=== PATIENT | male | born 1985 | race Caucasian/White ===

== ENCOUNTER 2020-05-10 07:22 | Outpatient (REF) | payer BC, SELFPAY | END 2020-05-10 07:23 | disposition home or self-care (01) | LOC: HO.LAB 07:22 | PROVIDERS: PCP Internal Medicine; Visit Provider Internal Medicine | DX: Z20.828 Contact with and (suspected) exposure to other viral communicable diseases (principal) | CPT/HCPCS: C9803; U0003 ==

== ENCOUNTER 2020-06-14 10:09 | Emergency (ER) | payer OTHER, BC, SELFPAY ==
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
[2020-06-14 10:25] VITALS: BP 163/93; PULSE 100; RESP 18; TEMP 36.9; O2SAT 95; BMI 30.1
== END 2020-06-14 12:50 | disposition home or self-care (01) ==
PROVIDERS: Emergency Provider Emergency Medicine
DX: S19.9XXA Unspecified injury of neck, initial encounter (principal); M54.2 Cervicalgia; V43.52XA Car driver injured in collision with other type car in traffic accident, initial encounter; Y93.9 Activity, unspecified; Y99.9 Unspecified external cause status; Y92.410 Unspecified street and highway as the place of occurrence of the external cause; Z79.899 Other long term (current) drug therapy
CPT/HCPCS: 72125; 99283; 99284

== ENCOUNTER 2020-07-24 15:12 | Outpatient (REF) | payer BC, SELFPAY ==
--- NOTE | ~2020-07-24 | CT_ITS ---
EXAMINATION: CT SOFT TISSUE NECK WITH CONTRAST CLINICAL INFORMATION: Follow-up cervical spine CT scan. COMPARISON: CT scan of the cervical spine to 10/26/2020. TECHNIQUE: Following the intravenous administration of 60 mL of Omnipaque 350 intravenous contrast, helical imaging was performed in the axial plane with generation of coronal and sagittal reformatted images. This CT examination was performed using dose optimization techniques as appropriate, variously including the following: *Automated exposure control *Adjustment of mA and/or kV according to patient size (this includes techniques or standardized protocols for targeted exams where dose is matched to indication/reason for exam; i.e. extremities or head) *Use of iterative reconstruction technique DLP: 467 mGy-cm FINDINGS: There is asymmetric adduction of the right arytenoid cartilage with corresponding enlargement of the right laryngeal ventricle and piriform recess consistent with paralysis of the right vocal cord. No abnormal soft tissue mass or enhancement along the expected course of the vagus or recurrent laryngeal nerves. There is nonspecific prominence of the palatine tonsillar tissue. Parapharyngeal and retromaxillary fat is preserved. Marine Steam[employer] spaces are symmetric. The parotid and submandibular glands are normal. There chronic changes related to the open repair of a right mandibular fracture. A few small foci of mineralization are visualized within the sublingual space on the right side near the insertion of the mylohyoid muscle, possibly secondary to surgery or old trauma. The tongue base and epiglottis are normal. Subglottic airway is widely patent. The thyroid gland is normal and the remainder of the visualized visceral soft tissues are normal. There are a few somewhat prominent albeit nonspecific cervical lymph nodes, none of which demonstrate worrisome enhancement characteristics to suggest capsular invasion or central necrosis. Lung apices are clear. The aortic arch apex is normal. Cervical carotid and vertebral arteries are grossly patent. Internal jugular veins fill symmetrically. There is no acute osseous finding. Specifically no worrisome lytic or blastic osseous lesion. Skull base is intact. No mastoid middle ear effusion. No active paranasal sinus disease. Limited visualization of the posterior fossa reveals no abnormal finding. CT/CT soft tissue neck w con IMPRESSION: There is nonspecific prominence of the palatine tonsillar tissue. Otherwise no abnormal enhancement. A few scattered nonspecific cervical lymph nodes are visualized within the vjuty-vo-vama of this examination, none of which demonstrate worrisome enhancement characteristics to suggest capsular invasion or central necrosis. Incidentally there are imaging characteristics consistent with paralysis of the right vocal cord. Otherwise no abnormal soft tissue mass or enhancement along the expected course of the vagus or recurrent laryngeal nerves.
== END 2020-07-24 15:13 | disposition home or self-care (01) ==
LOC: HO.CT 15:12
PROVIDERS: Visit Provider Internal Medicine
DX: J39.2 Other diseases of pharynx (principal)
CPT/HCPCS: 70491; Q9967

== ENCOUNTER 2021-03-02 11:54 | Outpatient (REF) | payer BC, SELFPAY ==
--- NOTE | ~2021-03-02 | US_ITS ---
EXAMINATION: US ABDOMEN LIMITED CLINICAL INFORMATION: Right upper quadrant pain.. COMPARISON: CT abdomen and pelvis noncontrast 01/16/2014. TECHNIQUE: Real-time imaging of the right upper quadrant abdominal viscera. FINDINGS: PANCREAS: The visualized pancreas is normal in size and echogenicity. There is no visible retroperitoneal effusion or pancreatic ductal distention. LIVER: The liver is normal in size and smooth in contour. There is increased hepatic parenchymal echogenicity consistent with hepatic steatosis. There is no focal hepatic parenchymal lesion. No intrahepatic biliary ductal dilatation. GALLBLADDER: Normal. The gallbladder is physiologically distended without evidence of stones, sludge, polyps, wall thickening or pericholecystic fluid. COMMON BILE DUCT: Normal in caliber measuring 0.3 cm in diameter. RIGHT KIDNEY: Normal. No hydronephrosis. No renal calculi or focal parenchymal lesions. The kidney measures 10.2 cm in maximum dimension. FREE FLUID: None. US/US abdomen limited IMPRESSION: 1. No cholelithiasis or ductal dilatation. 2. Hepatic steatosis.
[2021-03-02 13:49] LABS: Baso%MD 0.8 %; Eos%MD 1.6 %; Hematocrit 41.8 % (42-52); Hemoglobin 13.6 g/dl (14.0-18.0); IG%MD 0.8 %; Mean Corpuscular HGB Conc 32.5 g/dl (31.0-36.0); Mean Corpuscular Hemoglobin 28.5 pg (27.0-33.0); Mean Corpuscular Volume 87.6 fL (80-98); Mean Platelet Volume 10.2 fL (9.4-12.4); Mono%MD 9.1 %; Neut%MD 63.7 %; Platelet Count 325 X10*3/uL (160-400); Red Blood Count 4.77 X10*6/uL (4.60-5.80); Red Cell Distribution Width 14.3 % (11.0-16.0); White Blood Count 9.3 X10*3/uL (4.8-10.8)
[2021-03-02 14:14] LABS: Alanine Aminotransferase 18 U/L (0-40); Albumin Level 4.3 g/dL (3.5-5.0); Alkaline Phosphatase 91 U/L (39-117); Anion Gap 12 (12-20); Aspartate Amino Transferase 15 U/L (5-37); Bilirubin Total 0.3 mg/dL (0.0-1.0); Blood Urea Nitrogen 11 mg/dL (9-16); Calcium 9.7 mg/dL (8.4-10.2); Carbon Dioxide 30 mmol/L (22-29); Chloride 103 mmol/L (96-108); Estimated Glomerular Filt Rate > 60; Glucose Random 95 mg/dL (60-115); Lipase 29 U/L (8-78); Potassium 4.5 mmol/L (3.3-5.1); Sodium 140 mmol/L (135-145); Total Protein 7.5 g/dL (6.5-8.0)
[2021-03-02 14:45] LABS: Band Neutrophils Percent 2 % (3-5); Lymphocytes Absolute Manual 2.2 X10*3/uL (0.6-4.8); Lymphocytes Percent Manual 24 % (20-40); Monocytes Absolute Manual 0.5 X10*3/uL (0.0-1.2); Monocytes Percent Manual 5 % (2-11); Neutrophils Absolute Manual 6.6 X10*3/uL (2.2-7.9); Neutrophils Percent Manual 69 % (45-73)
[2021-03-02 14:46] LABS: Platelet Estimate NORMAL (NORMAL); Platelet Morphology Comment NORMAL; RBC Morphology NORMAL
== END 2021-03-02 11:55 | disposition home or self-care (01) ==
LOC: HO.HMGCX 11:54
PROVIDERS: PCP Internal Medicine; Visit Provider Physician Assistant Medical
DX: R10.9 Unspecified abdominal pain (principal)
CPT/HCPCS: 36415; 76705; 80053; 83690; 85007; 85027

== ENCOUNTER 2021-03-03 17:23 | Emergency (ER) | payer OTHER, SELFPAY ==
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
[2021-03-03 17:42] VITALS: BP 129/74; PULSE 89; RESP 16; TEMP 36.4; O2SAT 96; BMI 29.4
== END 2021-03-03 19:05 | disposition home or self-care (01) ==
PROVIDERS: Emergency Provider Internal Medicine; PCP Internal Medicine
DX: S39.012A Strain of muscle, fascia and tendon of lower back, initial encounter (principal); V43.52XA Car driver injured in collision with other type car in traffic accident, initial encounter; Y93.89 Activity, other specified; Y92.415 Exit ramp or entrance ramp of street or highway as the place of occurrence of the external cause; Y99.9 Unspecified external cause status
CPT/HCPCS: 72072; 99283

== ENCOUNTER 2021-06-15 07:04 | Outpatient (REF) | payer BC, SELFPAY ==
--- NOTE | ~2021-06-15 | XR_ITS ---
EXAMINATION: XR CHEST CLINICAL INFORMATION: R05.8 - Other specified cough COMPARISON: Chest radiographs 05/13/2019, 10/12/2014 TECHNIQUE: 2 views of the chest were obtained. FINDINGS: There is no airspace consolidation or groundglass opacity or effusion. The heart is normal in size and the hilar and mediastinal contours are normal. No acute bony abnormality. No significant changes from prior studies. XR/XR chest 2V IMPRESSION: Unremarkable examination.
--- NOTE | ~2021-06-15 | XR_ITS ---
EXAMINATION: XR CERVICAL SPINE CLINICAL INFORMATION: Cervicalgia COMPARISON: None TECHNIQUE: Cervical spine is imaged in 6 views: AP, lateral, swimmer's, odontoid x2, and Fuchs. FINDINGS: There is normal cervical lordosis with vertebral bodies of normal height. There is no cervical vertebral compression, destructive process, focal disc narrowing, or prevertebral soft tissue swelling. The odontoid appears intact. Normal bony mineralization. There is no anterior spondylolisthesis. The lateral view shows borderline retrolisthesis at C5-C6. This is not present on the swimmer's view. There is no perched facet. There are 2 screws right mandible. No cervical rib. XR/XR cervical spine 3V IMPRESSION: 1. No cervical vertebral compression, disc narrowing, or destructive process. 2. Transient mild retrolisthesis C5-C6. Lateral flexion-extension views may be considered to assess for instability.
[2021-06-15 07:17] LABS: MANUAL DIFF FLAG NO
[2021-06-15 07:53] LABS: Basophils Absolute Auto 0.1 X10*3/uL (0.0-0.2); Basophils Percent Auto 0.9 % (0-2); Eosinophils Absolute Auto 0.2 X10*3/uL (0.0-0.4); Eosinophils Percent Auto 1.5 % (0-4); Hematocrit 41.8 % (42.0-52.0); Hemoglobin 13.9 g/dl (14.0-18.0); Imm Gran Abs Auto 0.07 X10*3/uL (0.00-0.03); Imm Gran Pct Auto 0.7 % (0.0-0.4); Lymphocytes Absolute Auto 2.9 X10*3/uL (1.2-4.9); Lymphocytes Percent Auto 29.3 % (20-40); Mean Corpuscular HGB Conc 33.3 g/dl (31.0-36.0); Mean Corpuscular Hemoglobin 29.3 pg (27.0-33.0); Mean Platelet Volume 9.9 fL (9.4-12.4); Monocytes Percent Auto 9.8 % (2-11); Neutrophils Absolute Auto 5.7 x10*3/uL (2.0-8.3); Neutrophils Percent Auto 57.8 % (45-73); Platelet Count 359 X10*3/uL (160-400); Red Blood Count 4.75 X10*6/uL (4.60-5.80); Red Cell Distribution Width 14.3 % (11.0-16.0); White Blood Count 9.9 X10*3/uL (4.8-10.8)
[2021-06-15 08:24] LABS: Alanine Aminotransferase 12 U/L (0-40); Albumin Level 4.2 g/dL (3.5-5.0); Alkaline Phosphatase 80 U/L (39-117); Anion Gap 10 (12-20); Aspartate Amino Transferase 14 U/L (5-37); Bilirubin Total 0.4 mg/dL (0.0-1.0); Blood Urea Nitrogen 11 mg/dL (9-16); Calcium 9.9 mg/dL (8.4-10.2); Carbon Dioxide 27 mmol/L (22-29); Chloride 106 mmol/L (96-108); Cholesterol 249 mg/dL; Estimated Glomerular Filt Rate > 60; Glucose Fasting 107 mg/dL (60-99); HDL Cholesterol 28 mg/dL; Potassium 4.4 mmol/L (3.3-5.1); Sodium 139 mmol/L (135-145); Total Protein 7.6 g/dL (6.5-8.0); Triglycerides 851 mg/dL
[2021-06-15 08:46] LABS: TSH reflex Free T4 1.56 uIU/mL (0.32-4.0); Vitamin D 25-OH Total 16.7 ng/mL (>30)
== END 2021-06-15 07:05 | disposition home or self-care (01) ==
LOC: HO.XRAY 07:04
PROVIDERS: PCP Internal Medicine; Visit Provider Internal Medicine
DX: M54.2 Cervicalgia (principal); R05.8 Other specified cough; E78.00 Pure hypercholesterolemia, unspecified; E55.9 Vitamin D deficiency, unspecified
CPT/HCPCS: 36415; 71046; 72040; 80053; 80061; 82306; 84443; 85025

== ENCOUNTER → 2021-07-02 15:48 | Outpatient (BNVA) | payer BC, SELFPAY | PROVIDERS: PCP Internal Medicine; Referring Provider Internal Medicine; Visit Provider Surgery ==

== ENCOUNTER 2021-10-18 09:02 | Emergency (ER) | payer OTHER, BC, SELFPAY ==
[2021-10-18 09:13] VITALS: BP 150/100; PULSE 97; RESP 14; TEMP 36.6; O2SAT 98; BMI 29.8
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
[2021-10-18] MEDS: Cyclobenzaprine HCl 5 MG TABLET PO (10:30)
== END 2021-10-18 10:36 | disposition home or self-care (01) ==
PROVIDERS: Emergency Provider Emergency Medicine; PCP Internal Medicine
DX: Z04.1 Encounter for examination and observation following transport accident (principal); M54.2 Cervicalgia; M54.9 Dorsalgia, unspecified
CPT/HCPCS: 99283

== ENCOUNTER 2021-11-16 15:10 | Outpatient (REF) | payer OTHER, BC, SELFPAY ==
--- NOTE | ~2021-11-16 | XR_ITS ---
EXAMINATION: LUMBAR SPINE AND LEFT SHOULDER CLINICAL INFORMATION: Low pain COMPARISON: None TECHNIQUE: 3 views lumbar spine and 4 views left shoulder FINDINGS: Lumbar spine: There is normal lumbar lordosis. The vertebral heights and alignment is normal. There is mild loss of L5-S1 disc height. Rest the disc heights are normal. No visible acute fracture, dislocation or subluxation seen. SI joints are symmetrical. The paravertebral soft tissues are normal. Left shoulder: There is no visible acute fracture, dislocation or subluxation seen. The AC joint and the lateral joint space is maintained normal. The soft tissues are normal. XR/XR lumbar spine 2-3V IMPRESSION: Unremarkable lumbar spine exam. Unremarkable left shoulder exam.
--- NOTE | ~2021-11-16 | XR_ITS ---
EXAMINATION: LUMBAR SPINE AND LEFT SHOULDER CLINICAL INFORMATION: Low pain COMPARISON: None TECHNIQUE: 3 views lumbar spine and 4 views left shoulder FINDINGS: Lumbar spine: There is normal lumbar lordosis. The vertebral heights and alignment is normal. There is mild loss of L5-S1 disc height. Rest the disc heights are normal. No visible acute fracture, dislocation or subluxation seen. SI joints are symmetrical. The paravertebral soft tissues are normal. Left shoulder: There is no visible acute fracture, dislocation or subluxation seen. The AC joint and the lateral joint space is maintained normal. The soft tissues are normal. XR/XR shoulder LT min 2V IMPRESSION: Unremarkable lumbar spine exam. Unremarkable left shoulder exam.
== END 2021-11-16 15:11 | disposition home or self-care (01) ==
LOC: HO.XRAY 15:10
PROVIDERS: PCP Internal Medicine; Visit Provider Chiropractor
DX: M54.50 Low back pain, unspecified (principal); M25.512 Pain in left shoulder
CPT/HCPCS: 72100; 73030

== ENCOUNTER 2022-01-26 06:52 | Day surgery (SDC) | payer BC, SELFPAY ==
[2022-01-21 10:36] VITALS: BMI 27.6
--- NOTE | 2022-01-25 09:48 | HO.ANESPROP2 ---
Documented by User: Sanjana Gordillo NP 01/25/22 09:49 HPI - Anesthesia Eval Consult details Narrative: 36yo M for Hemorrhoidectomy EUA, possible biopsy of anal lesion PMFSH Active Problems Active Problems: All Active Problems (Updated 12/29/21 @ 16:41 by ELIDA Kaur) Left shoulder pain (Acute) Hemorrhoid (Acute) Anal lesion (Acute) Overweight (BMI 25.0-29.9) (Acute) Impaired fasting glucose (Acute) Rectal cyst (Acute) Recurrent productive cough (Acute) Neck pain (Acute) Abdominal pain (Acute) GERD without esophagitis (Acute) Low back pain (Acute) Cervical muscle strain (Acute) Mixed hyperlipidemia (Acute) Right hand weakness (Acute) Right hand paresthesia (Acute) Hypopharyngeal lesion (Acute) Past Medical History Medical History Anal lesion Cervical muscle strain GERD without esophagitis Hypopharyngeal lesion Low back pain Mixed hyperlipidemia Overweight (BMI 25.0-29.9) Right hand paresthesia Right hand weakness Family History Family History Father No problems noted. Mother Hypertension Surgical History Surgical History History of facial surgery Social History Social History Housing: Apartment Alcohol intake: current Alcohol intake frequency: holidays/special occasions only Patient Tobacco Use Status: Never used Tobacco Second Hand Smoke Exposure: Yes Substance Use Type: Marijuana service: No Current occupational status: employed Cognitive needs: No Hearing needs: No Vision needs: No Meds Allergies Allergy/AdvReac Type Severity Reaction Status Date / Time No Known Allergies Allergy Verified 01/13/22 10:50 Exam Exam Date and Time: January 25, 2022 0948 Height,Weight and Vital Signs: Height 5 ft 10 in Weight 87.543 kg Pertinent Lab Results Pertinent Lab Results: Laboratory Tests 06/15/21 06/15/21 07:15 07:15 WBC 9.9 Hgb 13.9 L Hct 41.8 L Plt Count 359 Sodium 139 Potassium 4.4 Chloride 106 Carbon Dioxide 27 BUN 11 Creatinine 0.86 Assessment and Plan Assessment Anesthesia Assessment: Chart Reviewed Documented by User: Librado Hester MD 01/26/22 21:46 PMFSH Past Medical History Medical History Anal lesion Cervical muscle strain GERD without esophagitis Hypopharyngeal lesion Low back pain Mixed hyperlipidemia Overweight (BMI 25.0-29.9) Right hand paresthesia Right hand weakness Functional capacity: independent ambulation Family History Family History Father No problems noted. Mother Hypertension Family history of problems with anesthesia: No Surgical History Surgical History History of facial surgery History of Problems with Anesthesia: No Social History Social History Housing: Apartment Alcohol intake: current Alcohol intake frequency: holidays/special occasions only Patient Tobacco Use Status: Never used Tobacco Second Hand Smoke Exposure: Yes Substance Use Type: Marijuana service: No Current occupational status: employed Cognitive needs: No Hearing needs: No Vision needs: No Meds Allergies Allergy/AdvReac Type Severity Reaction Status Date / Time No Known Allergies Allergy Verified 01/13/22 10:50 Exam Airway Mallampati Class: III TM Dist: >3cm Neck ROM: Full Loose/Missing/Broken Teeth: Yes (Caps , missing , poor dentition ) Heart: S1,S2 Lungs: b/l breath sounds Assessment and Plan Assessment Anesthesia Assessment: Anesthesia Plan Discussed Final Anesthetic Review Family History of Problems with Anesthesia: No History of Problems with Anesthesia: No NPO: Yes ASA Class: II Final Preanesthetic Review: Meds/Allgs Chart Reviewed, Consent Obtained/Reviewed and Anes Risks/Benef Reviewed Patient Risk: Intermediate Procedure Risk: Intermediate Anesthetic Plan Anesthetic Plan: GA Disposition: Standard PACU
[2022-01-26] VITALS (17 sets, daily range): BP systolic 111–139; BP diastolic 59–90; PULSE 74–94; RESP 16–20; TEMP 36.2–36.5; O2SAT 96–100; BMI 27.0
[2022-01-26] MEDS: Lactated Ringers 1,000 ML 100 ML IVCONT (07:24)
--- NOTE | 2022-01-26 08:15 | MHC.SHP ---
Pre-Procedural Eval Section A Date of Service: 01/26/22 The patient is an INPATIENT: No Changes since office visit: No Cold of Flu in the past 2 weeks, No New Medical Problems, No Changes in Medication and No Patient answered all questions The History & Physical has been completed within 30 days and I have reviewed it.: Yes Section B Chief Complaint: disease of anus Allergies: Allergies Allergy/AdvReac Type Severity Reaction Status Date / Time No Known Allergies Allergy Verified 01/13/22 10:50 Plan I have reviewed the history and physical and performed a pertinent physical examination on my patient. No changes have occurred unless specified.
--- NOTE | 2022-01-26 09:37 | W.PM.OPN ---
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 I had initially seen him in June. He had a hemorrhoid with what appeared to be an ulcer on the hemorrhoidal column at the external component. He canceled his hemorrhoidectomy at that time. He came back to me because of persistent pain. He therefore to proceed with exam under anesthesia and hemorrhoidectomy. He understood the technique of the procedure as well as the risks, benefits, and alternatives. He was brought to the operating room and placed in prone christopher-knife position under general anesthesia via endotracheal tube. The buttocks were retracted with wide tape laterally. The perianal area was prepped and draped in the usual sterile fashion. A surgical time-out was done. The patient received Cefotan 2 g IV preoperatively . I infiltrated the perianal area with lidocaine 1%. Examination of the anal orifice revealed external hemorrhoids, moderate-sized on both the left and the right side. On the right side, there was note of an ulceration on the anal verge right on the external hemorrhoid itself new. I applied a Lockett grasper on this hemorrhoidal column. I made a cfjgld-by-wgawy stitch at the pedicle proximal to the dentate line. I made an incision around this hemorrhoidal column to the perianal skin using blade 15. I excised this hemorrhoidal column above the plane of sphincters all the way to the pedicle to include the ulcerated area of the external hemorrhoid. This was done using Metzenbaum scissors. I then closed the incision with a running chromic 3-0 stitch with additional hemostatic sutures being placed I then proceeded to apply Lockett grasper on the column on the left. I made a figure area of since his pedicle using chromic 3-0 and made an incision around this hemorrhoidal column to the perianal skin. I excised this hemorrhoidal column above the plane of sphincters and closed this incision with a running chromic 3-0 stitch. Again additional hemostatic sutures were placed There were no other lesions in the anal canal. Once hemostasis was ensured, I proceeded to then apply a rolled Gelfoam into the anal canal for additional hemostasis. I infiltrated the perianal area with Marcaine 0.5% for postop analgesia. The procedure was then completed The patient tolerated procedure well. There were no immediate complications. Estimated blood loss about 20 cc The patient was extubated without difficulty and transferred to the recovery room with stable vital signs. Initial and final counts of sponges and instruments were correct.
[2022-01-26] MEDS: oxyCODONE HCl Immed Release 5 MG TABLET PO (10:06)
[2022-01-26] MEDS: fentaNYL citrate/PF 100 MCG/2 ML VIAL 25 MCG IVPUSH ×2 (10:06→10:16)
[2022-01-26] MEDS: Ondansetron ODT 4 MG TAB.RAPDIS TRANSLINGU (11:54)
== END 2022-01-26 12:56 | disposition home or self-care (01) ==
PROVIDERS: PCP Internal Medicine; Visit Provider Surgery
PROC: (CPT 46260; principal; 2022-01-26 08:40)
DX: K64.8 Other hemorrhoids (principal); K64.4 Residual hemorrhoidal skin tags; K21.9 Gastro-esophageal reflux disease without esophagitis; Z79.899 Other long term (current) drug therapy
CPT/HCPCS: 46260; 88304; J0131; J1100; J1170; J1885; J2250; J2405; J2550; J2795; J3010

== ENCOUNTER 2022-11-23 15:36 | Outpatient (AMB) | payer BC, SELFPAY ==
--- NOTE | 2022-11-23 15:38 | AM.OFFWIN_ITS ---
Intake Vital Signs 11/23/22 15:39 Height 5 ft 11 in BP 120/62 Blood Pressure Location Lt brachial Position Sitting Pulse 100 Pulse Source Pulse Oximeter Temp 96.7 F L Temp Source Temporal Artery Scan Pulse Oximetry (%) 96 Oxygen Delivery Method Room Air Intake Visit Reasons: EP Hemorrhoids still? Intake Note: Pt is here c/o possible hemorrhoids? Pt states they were taken out months ago and he is now feeling the same pain. Patient Tobacco Use Status: Never used Tobacco Allergies No Known Allergies Allergy (Verified 11/24/22 05:58) Medication List - Last Reconciled 11/24/22 by Kevin Garcia MD cyclobenzaprine 10 mg PO TID PRN 7 days docusate sodium (Colace) 100 mg PO BID fenofibrate 160 mg PO DAILY 90 days ibuprofen 600 mg PO Q6H PRN ibuprofen 800 mg PO Q8H PRN levofloxacin 500 mg PO DAILY lidocaine 4% 1 patch topical DAILY PRN omeprazole 40 mg PO DAILY 30 days oxycodone 5 mg PO TID PRN oxycodone-acetaminophen 5-325 mg (Percocet) 1 tab PO Q4-6H PRN witch sha 50% (Preparation H (Witch Sha)) 1 pad topical BID PRN Do you need a note to return to daycare/school/sports/work: Yes HPI EP Hemorrhoids still? HPI Details 37-year-old male presents to the office for a sick visit. Patient had a hemorrhoidectomy last year. In the past 2 days he is complaining of intense rectal pain. Symptoms are worse when he is sitting down. His job involves long distance driving. He feels very uncomfortable. [facility] Medical History Anal lesion Cervical muscle strain GERD without esophagitis Hypopharyngeal lesion Low back pain Mixed hyperlipidemia Overweight (BMI 25.0-29.9) Right hand paresthesia Right hand weakness Surgical History History of facial surgery History of hemorrhoidectomy Family History Father No problems noted. Mother Hypertension Social History Housing: Apartment Alcohol intake: current Alcohol intake frequency: holidays/special occasions only Patient Tobacco Use Status: Never used Tobacco Second Hand Smoke Exposure: Yes Substance Use Type: Marijuana service: No Current occupational status: employed Cognitive needs: No Hearing needs: No Vision needs: No Physical Exam Vital Signs: Last Vital Signs Temp 96.7 F L 11/23/22 15:39 Pulse 100 11/23/22 15:39 BP 120/62 11/23/22 15:39 Pulse Ox 96 11/23/22 15:39 Oxygen Delivery Method Room Air 11/23/22 15:39 Other: Rectal exam: Tenderness around the perirectal area. Assessment & Plan Assessment & Plan (1) Perirectal abscess: Code(s): K61.1 - Rectal abscess Plan: Patient has been started on an antibiotic and anti-inflammatory. An appointment with his surgeon was scheduled for next day morning. Patient has promised to follow-up with him. Medications: New levofloxacin 500 mg PO DAILY 7 tabs 0RF Refilled ibuprofen 800 mg PO Q8H PRN 14 tabs 0RF pain Coding Level of Care Code Est Pt Level 4 (62765) Diagnoses Perirectal abscess K61.1
[2022-11-23 15:39] VITALS: BP 120/62; PULSE 100; TEMP 35.9; O2SAT 96
== END 2022-11-23 16:15 | disposition home or self-care (01) ==
PROVIDERS: PCP Internal Medicine; Visit Provider Internal Medicine
DX: K61.1 Rectal abscess (principal)
CPT/HCPCS: 99214

== ENCOUNTER 2022-11-24 08:41 | Outpatient (AMB) | payer BC, SELFPAY ==
[2022-11-24 08:45] VITALS: BP 117/73; PULSE 96; BMI 26.5
--- NOTE | 2022-11-24 08:45 | MHC.OFFVIS ---
Intake Vital Signs 11/24/22 08:45 Height 5 ft 11 in Weight 190 lb BMI 26.5 BP 117/73 Blood Pressure Location Rt brachial Position Sitting Pulse 96 Intake Visit Reasons: Anal canal mass Intake Note: This patient presents for an assessment for a perirectal abscess. Patient c/o; pain, unable to sit for prolongs periods of time. 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 Accompanied by: Self / Same As Patient Allergies No Known Allergies Allergy (Verified 11/24/22 08:45) Medication List - Last Reconciled 11/24/22 by Fermin Martinez MD cyclobenzaprine 10 mg PO TID PRN 7 days docusate sodium (Colace) 100 mg PO BID fenofibrate 160 mg PO DAILY 90 days ibuprofen 600 mg PO Q6H PRN ibuprofen 800 mg PO Q8H PRN levofloxacin 500 mg PO DAILY lidocaine 4% 1 patch topical DAILY PRN omeprazole 40 mg PO DAILY 30 days oxycodone 5 mg PO TID PRN oxycodone-acetaminophen 5-325 mg (Percocet) 1 tab PO Q4-6H PRN witch patito 50% (Preparation H (Witch Patito)) 1 pad topical BID PRN HPI Anal canal mass HPI Details 37-year-old male referred for a mass in the anal canal. He says that he has felt this for about 2-3 days now. He says that this is very painful. He works as a regional refrigerated cdl truck driver and unfortunately has been in pain past 2 days. He denies any drainage He has a history of hemorrhoidectomy last January,. He says that he has been doing quite well the past 8 months. He denies any problems with bowel movements. [facility] Medical History (Updated 11/24/22 @ 09:10 by Fermin Martinez MD) Anal lesion Cervical muscle strain GERD without esophagitis Hypopharyngeal lesion Low back pain Mixed hyperlipidemia Overweight (BMI 25.0-29.9) Perianal pain Right hand paresthesia Right hand weakness Surgical History History of facial surgery History of hemorrhoidectomy Family History Father No problems noted. Mother Hypertension Social History Housing: Apartment Alcohol intake: current Alcohol intake frequency: holidays/special occasions only Patient Tobacco Use Status: Never used Tobacco Second Hand Smoke Exposure: Yes Substance Use Type: Marijuana service: No Current occupational status: employed Cognitive needs: No Hearing needs: No Vision needs: No Review of Systems Const Denies chills and Denies fever(s) Card Denies chest pain, Denies dyspnea and Denies dyspnea on exertion Resp Denies cough, Denies dyspnea and Denies dyspnea on exertion GI Denies hematochezia and Denies change in bowel habits Denies hematuria and Denies difficulty urinating Musc Denies back pain and Denies limited range of motion Neuro Denies focal weakness and Denies convulsions Psych Denies depression and Denies mood swings Physical Exam Vital Signs: Last Vital Signs Pulse 96 11/24/22 08:45 BP 117/73 11/24/22 08:45 BMI result Body Mass Index 26.5 Const General: comfortable and no acute distress Orientation/consciousness: patient oriented x3 Neck Neck: Yes no lymphadenopathy Resp Auscultation: clear to auscultation bilaterally Cardio Rhythm: regular rhythm GI Other: Tender induration on the left perianal area, unable to tolerate any exam at this time, no drainage Palpation (GI): Soft to palpation, nontender and no guarding Neuro General: patient oriented x3 Assessment & Plan Assessment & Plan (1) Perianal pain: Code(s): K62.89 - Other specified diseases of anus and rectum Plan: He has a very tender induration on the left perianal area. This highly suggestive of a perianal abscess. He is unable to tolerate any exam. I am going to therefore schedule him for an exam under anesthesia and likely I&D and possible seton for a fistula tomorrow. Explained him the technique of this procedure. I reviewed the risks, benefits, and alternatives. He understands and wants to proceed. Coding Level of Care Code Est Pt Level 3 (19686) Diagnoses Perianal pain K62.89
== END 2022-11-24 09:08 | disposition home or self-care (01) ==
PROVIDERS: PCP Internal Medicine; Referring Provider Internal Medicine; Visit Provider Surgery
DX: K62.89 Other specified diseases of anus and rectum (principal)
CPT/HCPCS: 99213

== ENCOUNTER → 2022-11-24 08:41 | Outpatient (BNVA) | payer BC, SELFPAY | PROVIDERS: PCP Internal Medicine; Referring Provider Internal Medicine; Visit Provider Surgery ==

== ENCOUNTER 2022-11-25 09:49 | Day surgery (SDC) | payer BC, SELFPAY ==
[2022-11-25 10:06] VITALS: BP 126/74; PULSE 90; RESP 18; TEMP 36.6; O2SAT 97
[2022-11-25 10:31] VITALS: BMI 26.5
[2022-11-25] MEDS: Lactated Ringers 1,000 ML 50 ML IVCONT (11:00)
--- NOTE | 2022-11-25 11:07 | PC.NURSE ---
report given to jose hernández rn at this time.
--- NOTE | 2022-11-25 11:33 | MHC.SHP ---
Pre-Procedural Eval Section A Date of Service: 11/25/22 The patient is an INPATIENT: No Changes since office visit: No Cold of Flu in the past 2 weeks, No New Medical Problems, No Changes in Medication and No Patient answered all questions The History & Physical has been completed within 30 days and I have reviewed it.: Yes Section B Chief Complaint: Other specified diseases of anus and rectum Allergies: Allergies Allergy/AdvReac Type Severity Reaction Status Date / Time No Known Allergies Allergy Verified 11/24/22 08:45 Plan I have reviewed the history and physical and performed a pertinent physical examination on my patient. No changes have occurred unless specified. Time Spent With Patient Time: Total time managing care of this patient today ____ minutes.
--- NOTE | 2022-11-25 12:15 | W.PM.OPN ---
Operative Note Operative Note Date of Service: 11/25/22 Narrative: Preop diagnosis: Perianal abscess Postop diagnosis: Perianal abscess, left; no fistula identified Procedure: EUA, I and Cathy of a perianal abscess Surgeon: Fermin Martinez MD The patient is a 37M seen in the office yesterday for a 2-3 day hx of severe perianal pain and swelling with an induration on the let perianal area. He understoos the technique of I and D in the R and was aware of the risks, benefits and alternatives. He was brought to the OR and placed in prone jacknife position under general anesthesia via LMA. The buttocks were retracted with wide taple laterally. The perianal area was prepped and draped in the usual sterile fashion. The perianal area was infiltrated with Lidocaine 1%. Exam showed a large induration in the left anal verge without any sinus or drainage. I inserted the Allan Arteaga retractor into the anal canal.I examined the anal canal circumferentially. There was no internal fistulous opening seen. There was no drainage along the dentate line nor cordlike induration. I therefore made a incision on the skin overlying the area of induration about 2.5 cm from the verge on the left using a bladee 11. Immediately, large amounts of pus was drainage. Cultures were taken. I probed the cavity the cavity with the suction tip to break down any loculations. I reexamined the mil canal. Again, no internal fistula or any other lesion was identified. I then infultrated the perianal area with Marcaine .25% for postop analgesia and the procedure was completed. He tolerated the procedure well. There were no immediate complications. He was extubated without difficulty and transferred to the PACU with stable VS.
[2022-11-25 12:35] VITALS: BP 134/56; PULSE 99; RESP 16; TEMP 36.7; O2SAT 98
--- NOTE | 2022-11-25 12:39 | HO.ANESPROP2 ---
HPI - Anesthesia Eval Consult details Narrative: 37 M with rectal abscess PMFSH Active Problems Active Problems: All Active Problems (Updated 11/24/22 @ 09:10 by Fermin Martinez MD) Perianal pain (Acute) Perirectal abscess (Acute) Left shoulder pain (Acute) Hemorrhoid (Acute) Anal lesion (Acute) Overweight (BMI 25.0-29.9) (Acute) Impaired fasting glucose (Acute) Rectal cyst (Acute) Recurrent productive cough (Acute) Neck pain (Acute) Abdominal pain (Acute) GERD without esophagitis (Acute) Low back pain (Acute) Cervical muscle strain (Acute) Mixed hyperlipidemia (Acute) Right hand weakness (Acute) Right hand paresthesia (Acute) Hypopharyngeal lesion (Acute) Past Medical History Medical History Anal lesion Cervical muscle strain GERD without esophagitis Hypopharyngeal lesion Low back pain Mixed hyperlipidemia Overweight (BMI 25.0-29.9) Perianal pain Right hand paresthesia Right hand weakness Family History Family History Father No problems noted. Mother Hypertension Family history of problems with anesthesia: No Surgical History Surgical History History of facial surgery History of hemorrhoidectomy History of Problems with Anesthesia: No Social History Social History Housing: Apartment Alcohol intake: current Alcohol intake frequency: holidays/special occasions only Patient Tobacco Use Status: Never used Tobacco Second Hand Smoke Exposure: Yes Substance Use Type: Marijuana Substance Use Frequency: Daily Are you DNR?: No Advance Directives: No Advance Directives Information Provided: Yes Nutrition Risks: No Nutritional Risk service: No Current occupational status: employed Cognitive needs: No Hearing needs: No Vision needs: No Meds Allergies Allergy/AdvReac Type Severity Reaction Status Date / Time No Known Allergies Allergy Verified 11/24/22 08:45 Active Medications: Current Medications Acetaminophen (Acetaminophen 325 Mg Tablet) 975 mg PO ONCE PRN PRN Reason: Pain, Mild (Pain Scale 1-3) Lactated Ringer's (Lr) 1,000 mls @ 50 mls/hr IVCONT .Q20H COLLEEN Last Admin: 11/25/22 11:00 Dose: 50 mls/hr Exam Exam Date and Time: November 25, 2022 1239 Height,Weight and Vital Signs: Height 5 ft 11 in Weight 190 lb Last Vital Signs Temp 98.1 F 11/25/22 12:35 Pulse 99 11/25/22 12:35 Resp 16 11/25/22 12:35 BP 134/56 L 11/25/22 12:35 Pulse Ox 98 11/25/22 12:35 O2 Del Method Room Air 11/25/22 12:35 Airway Mallampati Class: I TM Dist: >3cm Neck ROM: Full Loose/Missing/Broken Teeth: Yes (front left broken tooth ) Assessment and Plan Assessment Anesthesia Assessment: Anesthesia Plan Discussed Final Anesthetic Review Family History of Problems with Anesthesia: No History of Problems with Anesthesia: No NPO: Yes ASA Class: II Final Preanesthetic Review: No Changes in Pt Med Stat, Meds/Allgs Chart Reviewed, Consent Obtained/Reviewed and Anes Risks/Benef Reviewed Patient Risk: Low Procedure Risk: Low Anesthetic Plan Anesthetic Plan: GA Disposition: Standard PACU
[2022-11-25 12:40] VITALS: BP 141/57; PULSE 91; RESP 16; O2SAT 98
[2022-11-25 12:45] VITALS: BP 162/94; PULSE 92; RESP 16; O2SAT 98
[2022-11-25] MEDS: Acetaminophen 325 MG TABLET 975 MG PO (12:47)
[2022-11-25 12:50] VITALS: BP 126/80; PULSE 89; RESP 16; TEMP 36.7; O2SAT 97
[2022-11-25 13:05] VITALS: BP 126/61; PULSE 85; RESP 20; O2SAT 97
== END 2022-11-25 13:07 | disposition home or self-care (01) ==
PROVIDERS: PCP Internal Medicine; Visit Provider Surgery
PROC: (CPT 46050; principal; 2022-11-25 11:40)
DX: K61.0 Anal abscess (principal)
CPT/HCPCS: 46050; 87070; 87205; J1885; J2250; J3010

== ENCOUNTER → 2022-11-25 09:49 | Outpatient (BNV) | payer BC, SELFPAY | PROVIDERS: PCP Internal Medicine; Visit Provider Surgery | DX: K61.0 Anal abscess (principal) | CPT/HCPCS: 49060 ==

== ENCOUNTER 2022-12-06 14:16 | Outpatient (AMB) | payer BC, SELFPAY ==
--- NOTE | 2022-12-06 14:18 | A.OFFVIS_ITS ---
Intake Vital Signs 12/06/22 14:28 Weight 189 lb BP 118/67 Blood Pressure Location Rt brachial Position Sitting Pulse 72 Intake Visit Reasons: check wound Intake Note: This patient presents for a post-op assessment status post EUA, I and D of a perianal abscess. Patient denies complaints at this time. 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 He tolerated procedure well. Her currently denies significant complaints. He says he feels well and denies any pain in the anus now. [facility] Medical History Anal lesion Cervical muscle strain GERD without esophagitis Hypopharyngeal lesion Low back pain Mixed hyperlipidemia Overweight (BMI 25.0-29.9) Perianal pain Right hand paresthesia Right hand weakness Surgical History History of facial surgery History of hemorrhoidectomy History of incision and drainage (~11/25/22) Family History Father No problems noted. Mother Hypertension Social History Housing: Apartment Alcohol intake: current Alcohol intake frequency: holidays/special occasions only Patient Tobacco Use Status: Never used Tobacco Second Hand Smoke Exposure: Yes Substance Use Type: Marijuana service: No Current occupational status: employed Cognitive needs: No Hearing needs: No Vision needs: No Review of Systems Const Denies chills and Denies fever(s) Card Denies chest pain, Denies dyspnea and Denies dyspnea on exertion Resp Denies cough, Denies dyspnea and Denies dyspnea on exertion GI Denies hematochezia and Denies change in bowel habits Denies hematuria and Denies difficulty urinating Musc Denies back pain and Denies limited range of motion Neuro Denies focal weakness and Denies convulsions Psych Denies depression and Denies mood swings Physical Exam Vital Signs: Last Vital Signs Pulse 72 12/06/22 14:28 BP 118/67 12/06/22 14:28 Const General: comfortable and no acute distress GI Other: Rectal exam- I&D site well healed, no residual induration, no fluctuance, no redness, no tenderness Palpation (GI): Soft to palpation, not firm and nontender Assessment & Plan Assessment & Plan (1) Perirectal abscess: Code(s): K61.1 - Rectal abscess Plan: Status post I& D. He is doing very well. His incision is well healed. There is no residual induration. He can follow up on a p.r.n. basis Coding Level of Care Code Global (27931) Diagnoses Perirectal abscess K61.1
[2022-12-06 14:28] VITALS: BP 118/67; PULSE 72
== END 2022-12-06 14:49 | disposition home or self-care (01) ==
PROVIDERS: PCP Internal Medicine; Visit Provider Surgery
DX: K61.1 Rectal abscess (principal)
CPT/HCPCS: 99024

== ENCOUNTER → 2022-12-06 14:16 | Outpatient (BNVA) | payer BC, SELFPAY | PROVIDERS: PCP Internal Medicine; Visit Provider Surgery ==

== ENCOUNTER 2023-02-25 18:43 | Emergency (ER) | payer BC, SELFPAY ==
--- NOTE | ~2023-02-25 | XR_ITS ---
EXAMINATION: XR CHEST CLINICAL INFORMATION: Syncope. COMPARISON: None available. TECHNIQUE: 2 views of the chest were obtained. FINDINGS: The cardiomediastinal silhouette is normal. There is no focal lung consolidation or pleural effusion. The bony structures and soft tissues are unremarkable. XR/XR chest 2V IMPRESSION: No active cardiopulmonary disease.
[2023-02-25 19:18] VITALS: BP 118/69; PULSE 87; RESP 16; TEMP 36.8; O2SAT 99; BMI 27.1
--- NOTE | 2023-02-25 19:20 | ED.GENADULT ---
HPI - General Adult General Chief complaint: Weakness Stated complaint: weakness, lightheaded Time Seen by Provider: 02/25/23 21:27 Source: patient Mode of arrival: ambulatory Limitations: no limitations History of Present Illness HPI narrative: Patient otherwise healthy was cooking with his son felt lightheaded with cold sweats felt like passing out sat down and felt better had similar episode in the past. No seizure-like activity no palpitation no chest pain or shortness of breath Related Data Previous Rx's Medication Instructions Recorded fenofibrate 160 mg tablet 160 mg PO DAILY 90 days #90 tabs 06/15/21 omeprazole 40 mg capsule,delayed 40 mg PO DAILY 30 days #30 caps 06/15/21 release cyclobenzaprine 10 mg tablet 10 mg PO TID PRN muscle spasm 7 12/29/21 days #21 tabs lidocaine 4 % topical patch 1 patch topical DAILY PRN pain #10 12/29/21 ea witch sha 50 % topical pads 1 pad topical BID PRN skin 12/29/21 (Preparation H (Witch Sha)) irritation #48 ea docusate sodium 100 mg capsule 100 mg PO BID #60 caps 01/26/22 (Colace) ibuprofen 600 mg tablet 600 mg PO Q6H PRN pain #30 tabs 01/26/22 oxycodone 5 mg tablet 5 mg PO TID PRN pain #20 tabs 02/02/22 oxycodone-acetaminophen 5 mg-325 1 tab PO Q4-6H PRN pain #20 tabs 02/02/22 mg tablet (Percocet) ibuprofen 800 mg tablet 800 mg PO Q8H PRN pain #14 tabs 11/23/22 levofloxacin 500 mg tablet 500 mg PO DAILY #7 tabs 11/23/22 ibuprofen 600 mg tablet 600 mg PO Q6H PRN pain #30 tabs 11/25/22 oxycodone-acetaminophen 5 mg-325 1 tab PO Q4-6H PRN pain #20 tabs 11/25/22 mg tablet (Percocet) Allergies Allergy/AdvReac Type Severity Reaction Status Date / Time No Known Allergies Allergy Verified 02/25/23 19:18 Review of Systems Review of Systems: Yes all other systems are reviewed and are negative PMFSH Past Medical History Medical History Perianal pain Anal lesion Overweight (BMI 25.0-29.9) GERD without esophagitis Low back pain Cervical muscle strain Mixed hyperlipidemia Right hand weakness Right hand paresthesia Hypopharyngeal lesion Surgical History History of incision and drainage (~11/25/22) History of hemorrhoidectomy History of facial surgery Family History Family History Father No problems noted. Mother Hypertension Social History Social History Housing: Apartment Alcohol intake: current Alcohol intake frequency: holidays/special occasions only Patient Tobacco Use Status: Never used Tobacco Second Hand Smoke Exposure: Yes Substance Use Type: Marijuana Advance Directives: No Advance Directives Information Provided: No service: No Current occupational status: employed Cognitive needs: No Hearing needs: No Vision needs: No Physical Exam ED Vital Signs: Vital Signs - 24 hr 02/25/23 19:18 02/25/23 21:43 02/25/23 21:48 Temperature 98.2 F 98.4 F Pulse Rate 87 85 81 Respiratory Rate 16 17 Blood Pressure 118/69 111/72 111/65 Pulse Oximetry 99 98 Oxygen Delivery Method Room Air Room Air 02/25/23 21:49 02/25/23 21:51 Temperature Pulse Rate 84 84 Respiratory Rate Blood Pressure 109/65 114/69 Pulse Oximetry Oxygen Delivery Method BMI result Body Mass Index 27.1 Appearance: Alert. Oriented X3. No acute distress. Eyes: PERRLA, No Nystagmus ENT: Pharynx normal. Oral Mucosa moist Neck: Normal inspection. Neck supple. CVS: Normal heart rate and rhythm. Pulses normal. Respiratory: No respiratory distress. Equal air entry bilateral, no wheezing/rales/rhonchi Abdomen: Soft and nontender. Bowel sounds are present, no mass palpable, no CVA tenderness Skin: Skin warm and dry. Normal skin color. Normal skin turgor. Extremities: No lower extremity edema. No calf tenderness Neuro: Oriented X 3. No motor deficit. No sensory deficit.No cerebellar signs , cranial nerves II-XII intact Course Course Course Narrative: RME performed by Nolvia Galindo PA-C. Patient is a 37 year old assigned male at presenting to the emergency department with lightheadedness. Labs, imaging, and swabs ordered. Patient placed back in the waiting room pending room availability and results. Medical Decision Making Medical Decision Making [facility] Narrative: Patient clinically with vasovagal episode normal orthostatics normal. Labs and EKG discharge patient home feeling back to normal Differential Diagnosis Differential Diagnoses: The differential diagnosis associated with the presentation includes Vasovagal near-syncope/erythema/hypotension Lab Data [facility] Lab Attestation statement: I reviewed the patient's lab results. 02/25/23 20:19 02/25/23 20:19 Labs: Lab Results 02/25/23 Range/Units 20:19 WBC 12.2 H (4.8-10.8) X10*3/uL RBC 4.23 L (4.60-5.80) X10*6/uL Hgb 12.6 L (14.0-18.0) g/dl Hct 37.8 L (42.0-52.0) % MCV 89.4 (80.0-98.0) fL MCH 29.8 (27.0-33.0) pg MCHC 33.3 (31.0-36.0) g/dl RDW 14.0 (11.0-16.0) % Plt Count 310 (160-400) X10*3/uL MPV 9.1 L (9.4-12.4) fL Immature Gran % (Auto) 0.5 H (0.0-0.4) % Neut % (Auto) 69.5 (45-73) % Lymph % (Auto) 18.8 L (20-40) % Arroyo % (Auto) 8.8 (2-11) % Eos % (Auto) 1.9 (0-4) % Baso % (Auto) 0.5 (0-2) % Lymph # (Auto) 2.3 (1.2-4.9) X10*3/uL Arroyo # (Auto) 1.1 (0.1-1.2) X10*3/uL Eos # (Auto) 0.2 (0.0-0.4) X10*3/uL Baso # (Auto) 0.1 (0.0-0.2) X10*3/uL Abs Immat Gran (auto) 0.06 H (0.00-0.03) X10*3/uL Absolute Neuts (auto) 8.5 H (2.0-8.3) x10*3/uL Absolute Nucleated RBC 0.000 (0.0-0.012) X10*3/uL Nucleated RBC % (auto) 0.0 (0.0-0.2) /100WBC Sodium 140 (135-145) mmol/L Potassium 3.7 (3.3-5.1) mmol/L Chloride 107 (96-108) mmol/L Carbon Dioxide 23 (22-29) mmol/L Anion Gap 14 (12-20) BUN 13 (9-16) mg/dL Creatinine 0.77 (0.5-1.4) mg/dL Estim Creat Clear Calc 137.1 Estimated GFR > 60 Random Glucose 121 H (60-115) mg/dL Calcium 9.5 (8.4-10.2) mg/dL Magnesium 2.3 (1.6-2.6) mg/dL Total Bilirubin 0.2 (0.0-1.0) mg/dL AST 14 (5-37) U/L ALT 10 (0-40) U/L Alkaline Phosphatase 80 (39-117) U/L Troponin I High Sens < 2.7 (<3.5-35.0) ng/L Total Protein 7.1 (6.5-8.0) g/dL Albumin 4.1 (3.5-5.0) g/dL Influenza Type A (PCR) NEGATIVE (Negative) Influenza Type B (PCR) NEGATIVE (Negative) RSV RNA Qual (PCR) NEGATIVE (Negative) SARS-CoV-2 RNA (RT-PCR) NEGATIVE (Negative) Independent Interpretation I performed an independent interpretation of an: EKG Interpretation: Normal sinus rhythm heart rate 80 beats per minute normal intervals normal axis no acute ST-T no acute ischemia Discharge Plan Discharge Clinical Impression: Vasovagal episode Patient Disposition: Home, Self-Care Instructions: Near Syncope (ED) Additional Instructions: Drink plenty of fluid Likely you had vasovagal episode which is not life-threatening. Prescriptions: No Action oxycodone-acetaminophen [Percocet] 5-325 mg tablet 1 tab PO Q4-6H PRN (Reason: pain) Qty: 20 0RF Rx Instructions: Partial Fill upon patient request. oxycodone 5 mg tablet 5 mg PO TID PRN (Reason: pain) Qty: 20 0RF Rx Instructions: Partial Fill upon patient request. docusate sodium [Colace] 100 mg capsule 100 mg PO BID Qty: 60 2RF ibuprofen 600 mg tablet 600 mg PO Q6H PRN (Reason: pain) Qty: 30 0RF oxycodone-acetaminophen [Percocet] 5-325 mg tablet 1 tab PO Q4-6H PRN (Reason: pain) Qty: 20 0RF Rx Instructions: Partial Fill upon patient request. ibuprofen 600 mg tablet 600 mg PO Q6H PRN (Reason: pain) Qty: 30 0RF cyclobenzaprine 10 mg tablet 10 mg PO TID PRN (Reason: muscle spasm) 7 Days Qty: 21 0RF lidocaine 4 % adhesive patch,medicated 1 patch topical DAILY PRN (Reason: pain) Qty: 10 0RF Rx Instructions: may leave on for up to 12 hrs Preparation H (Nacho Caputo) 50 % pads, medicated 1 pad topical BID PRN (Reason: skin irritation) Qty: 48 0RF fenofibrate 160 mg tablet 160 mg PO DAILY 90 Days Qty: 90 1RF omeprazole 40 mg capsule,delayed release(DR/EC) 40 mg PO DAILY 30 Days Qty: 30 1RF ibuprofen 800 mg tablet 800 mg PO Q8H PRN (Reason: pain) Qty: 14 0RF levofloxacin 500 mg tablet 500 mg PO DAILY Qty: 7 0RF
--- NOTE | 2023-02-25 19:21 | ECG_ITS ---
Test Reason : WEAKNESS Blood Pressure : / mmHG Vent. Rate : 080 BPM Atrial Rate : 080 BPM P-R Int : 178 ms QRS Dur : 098 ms QT Int : 340 ms P-R-T Axes : 045 013 -03 degrees QTc Int : 392 ms Normal sinus rhythm Normal ECG When compared with ECG of 26-AUG-2017 14:18, No significant change was found Referred By: Nolvia Galindo Electronically Signed By:ALFREDITO ARREDONDO MD
[2023-02-25 20:24] LABS: MANUAL DIFF FLAG NO
[2023-02-25 20:27] LABS: Basophils Absolute Auto 0.1 X10*3/uL (0.0-0.2); Basophils Percent Auto 0.5 % (0-2); Eosinophils Absolute Auto 0.2 X10*3/uL (0.0-0.4); Eosinophils Percent Auto 1.9 % (0-4); Hematocrit 37.8 % (42.0-52.0); Hemoglobin 12.6 g/dl (14.0-18.0); Imm Gran Abs Auto 0.06 X10*3/uL (0.00-0.03); Imm Gran Pct Auto 0.5 % (0.0-0.4); Lymphocytes Absolute Auto 2.3 X10*3/uL (1.2-4.9); Lymphocytes Percent Auto 18.8 % (20-40); Mean Corpuscular HGB Conc 33.3 g/dl (31.0-36.0); Mean Corpuscular Hemoglobin 29.8 pg (27.0-33.0); Mean Corpuscular Volume 89.4 fL (80.0-98.0); Mean Platelet Volume 9.1 fL (9.4-12.4); Monocytes Absolute Auto 1.1 X10*3/uL (0.1-1.2); Monocytes Percent Auto 8.8 % (2-11); Neutrophils Absolute Auto 8.5 x10*3/uL (2.0-8.3); Neutrophils Percent Auto 69.5 % (45-73); Platelet Count 310 X10*3/uL (160-400); Red Blood Count 4.23 X10*6/uL (4.60-5.80); White Blood Count 12.2 X10*3/uL (4.8-10.8)
[2023-02-25 20:51] LABS: Alanine Aminotransferase 10 U/L (0-40); Albumin Level 4.1 g/dL (3.5-5.0); Alkaline Phosphatase 80 U/L (39-117); Anion Gap 14 (12-20); Aspartate Amino Transferase 14 U/L (5-37); Bilirubin Total 0.2 mg/dL (0.0-1.0); Blood Urea Nitrogen 13 mg/dL (9-16); Calcium 9.5 mg/dL (8.4-10.2); Carbon Dioxide 23 mmol/L (22-29); Chloride 107 mmol/L (96-108); Creatinine Clr Calc Pharmacy 137.1; Estimated Glomerular Filt Rate > 60; Glucose Random 121 mg/dL (60-115); Magnesium 2.3 mg/dL (1.6-2.6); Potassium 3.7 mmol/L (3.3-5.1); Sodium 140 mmol/L (135-145); Total Protein 7.1 g/dL (6.5-8.0)
[2023-02-25 20:58] LABS: Troponin-I High Sensitivity < 2.7 ng/L (<3.5-35.0)
[2023-02-25 21:17] LABS: Influenza A PCR NEGATIVE (Negative); Influenza B PCR NEGATIVE (Negative); Resp Syncy Virus RNA Qual PCR NEGATIVE (Negative); SARS COV2 PCR INHOUSE NEGATIVE (Negative)
[2023-02-25 21:43] VITALS: BP 111/72; PULSE 85; RESP 17; TEMP 36.9; O2SAT 98
[2023-02-25 21:48] VITALS: BP 111/65; PULSE 81
[2023-02-25 21:49] VITALS: BP 109/65; PULSE 84
[2023-02-25 21:51] VITALS: BP 114/69; PULSE 84
== END 2023-02-25 22:36 | disposition home or self-care (01) ==
PROVIDERS: Physician Assistant Medical; Emergency Provider Internal Medicine; PCP Internal Medicine
DX: R55 Syncope and collapse (principal); R53.1 Weakness; Z20.822 Contact with and (suspected) exposure to COVID-19; Z20.828 Contact with and (suspected) exposure to other viral communicable diseases
CPT/HCPCS: 0241U; 71046; 80053; 83735; 84484; 85025; 93005; 99284

== ENCOUNTER 2023-04-18 13:32 | Outpatient (AMB) | payer BC, SELFPAY ==
--- NOTE | 2023-04-18 13:59 | AM.OFFWIN_ITS ---
Intake Vital Signs 04/18/23 14:00 Height 5 ft 11 in Weight 87.543 kg BMI 26.9 BP 118/70 Blood Pressure Location Rt brachial Position Sitting Pulse 86 Pulse Source Pulse Oximeter Temp 98.0 F Temp Source Temporal Artery Scan Pulse Oximetry (%) 96 Intake Visit Reasons: EP Pain RT Side AB Intake Note: pt is here today for pain on rt side AB started 5-7 days ago Patient Tobacco Use Status: Never used Tobacco Allergies No Known Allergies Allergy (Verified 04/18/23 14:00) Do you need a note to return to daycare/school/sports/work: Yes HPI HPI Comments History of Present Illness Details 1411 37-year-old male presents with right low er quadrant abdominal pain started 5 days ago has been progressively worsening pain was severe this morning he took a Percocet and continues to have pain. No radiation of pain. No associated nausea, vomiting, fevers, chills, chest pain, shortness of breath On exam right lower quadrant tenderness negative Rovsing. Concerns for possible appendicitis versus kidney stone versus musculoskeletal pain. This is not appropriate to handle in a walk-in setting, patient will likely require labs and imaging. Patient to [facility] Emergency Department. [facility] Medical History Perianal pain Anal lesion Overweight (BMI 25.0-29.9) GERD without esophagitis Low back pain Cervical muscle strain Mixed hyperlipidemia Right hand weakness Right hand paresthesia Hypopharyngeal lesion Surgical History History of incision and drainage (~11/25/22) History of hemorrhoidectomy History of facial surgery Family History Father No problems noted. Mother Hypertension Social History Housing: Apartment Alcohol intake: current Alcohol intake frequency: holidays/special occasions only Patient Tobacco Use Status: Never used Tobacco Second Hand Smoke Exposure: Yes Substance Use Type: Marijuana service: No Current occupational status: employed Cognitive needs: No Hearing needs: No Vision needs: No Review of Systems Const Details: Constitutional : No Weight loss, No Fever, No Chills, No Fatigue, No Malaise ENT/Mouth : No sore throat, No Rhinorrhea Eyes: No Eye Pain, No Swelling, No Redness Cardiovascular : No Chest Pain, No SOB, No Dyspnea on Exertion, No Orthopnea, No Edema, No Palpitations Respiratory : No Cough, No Sputum, No Wheezing Gastrointestinal : No Nausea, No Vomiting, No Diarrhea, No Constipation, + abdominal Pain, No Hematochezia, No Melena Genitourinary : No Dysuria, No Urinary Frequency, No Hematuria, Musculoskeletal : No joint pain, No Myalgias, No Joint Swelling Skin : No Skin Lesions, No rash Neuro : No Weakness, No Numbness, No Dizziness, No Headache Psych : No Anxiety/Panic, No Depression All other systems reviewed and are negative All systems reviewed & are unremarkable except as noted in HPI and below Physical Exam Vital Signs: Last Vital Signs Temp 98.0 F 04/18/23 14:00 Pulse 86 04/18/23 14:00 BP 118/70 04/18/23 14:00 Pulse Ox 96 04/18/23 14:00 BMI result Body Mass Index 26.9 vss Appearance: Alert.? Oriented X3.? No acute distress.? Head: Normocephalic, atraumatic, no step-offs or deformities Eyes: Pupils equal, round and reactive to light.? Neck: Normal inspection.? Neck supple.? CVS: Normal heart rate and rhythm.? Pulses normal.? Respiratory: No respiratory distress.? Breath sounds normal.? Abdomen: Soft and + RLQ tenderness .? Skin: Skin warm and dry.? Normal skin color.? Normal skin turgor.? Extremities: No lower extremity edema.? No calf ttp. 5/5 strength to bilateral upper and lower extremities Neuro: Oriented X 3.? No motor deficit.? No sensory deficit. CN 2-12 intact Assessment & Plan Assessment & Plan (1) RLQ abdominal pain: Code(s): R10.31 - Right lower quadrant pain Plan Patient to go to [facility] [place] private [place] Coding Level of Care Code Est Pt Level 3 (93146) Diagnoses RLQ abdominal pain R10.31
[2023-04-18 14:00] VITALS: BP 118/70; PULSE 86; TEMP 36.7; O2SAT 96; BMI 26.9
== END 2023-04-18 14:27 | disposition home or self-care (01) ==
PROVIDERS: PCP Internal Medicine; Visit Provider Physician Assistant
DX: R10.31 Right lower quadrant pain (principal)
CPT/HCPCS: 99213

== ENCOUNTER 2023-04-18 14:22 | Emergency (ER) | payer BC, SELFPAY ==
--- NOTE | ~2023-04-18 | CT_ITS ---
EXAMINATION: CT ABDOMEN AND PELVIS WITH CONTRAST CLINICAL INFORMATION: Right lower quadrant pain. COMPARISON: None available. TECHNIQUE: Multidetector volumetric images were obtained from the superior aspect of the liver through the pubic symphysis following administration 85 mL of Omnipaque 350 intravenous contrast. Sagittal and coronal reformatted images were obtained on the technologist's workstation. Oral contrast: No This CT examination was performed using dose optimization techniques as appropriate, variously including the following: *Automated exposure control *Adjustment of mA and/or kV according to patient size (this includes techniques or standardized protocols for targeted exams where dose is matched to indication/reason for exam; i.e. extremities or head) *Use of iterative reconstruction technique DLP: 574 mGy-cm FINDINGS: LUNG BASES: There is bilateral lower lobe dependent minimal atelectasis. There is platelike atelectasis right lower lobe anterior basal segment. Heart size is normal. LIVER, GALLBLADDER, AND BILIARY TREE: The liver is normal in size, shape, and attenuation. No focal hepatic lesion or biliary ductal dilatation is present. The gallbladder is unremarkable with no evidence of radiopaque gallstones, gallbladder wall thickening, or obvious pericholecystic inflammatory changes. PANCREAS: Unremarkable. SPLEEN: Unremarkable. ADRENAL GLANDS: A 1.6 cm right adrenal lesion measuring 54 silhouettes not a benign lesion. The right adrenal gland is unremarkable. KIDNEYS AND URETERS: The kidneys are normal in size, shape, and attenuation. No hydronephrosis, hydroureter, or calculi seen. No perinephric stranding. BLADDER: Unremarkable. GASTROINTESTINAL TRACT: There is scattered stool and gas seen throughout the colon without significant distention. The small bowel loops are normal caliber. Appendix is normal caliber. No inflammatory process seen in the right lower quadrant. ABDOMINAL WALL: No significant hernia is appreciated. LYMPH NODES: Normal. VASCULAR: Unremarkable. PELVIC VISCERA: There is moderate stool in the rectum and the sigmoid colon with mild distention. No free fluid. No abnormal pelvic or inguinal lymph nodes. The prostate gland is mildly enlarged. OSSEOUS STRUCTURES: No aggressive lytic or sclerotic process seen. CT/CT abdomen pelvis w IV con IMPRESSION: 1. No acute intra-abdominal process seen. 2. Mild constipation. 3. A 1.6 cm right adrenal lesion measuring 54 silhouettes not a benign lesion. This can be further evaluated CT abdomen with and without contrast followed by delayed images.. Fleischner guidelines were followed.
[2023-04-18 14:45] VITALS: BP 141/97; PULSE 81; RESP 18; TEMP 36.9; O2SAT 98; BMI 27.0
--- NOTE | 2023-04-18 14:45 | ED_ITS ---
HPI - General Adult General Chief complaint: Abdominal Pain Stated complaint: R side abd pain sent by walk in Time Seen by Provider: 04/18/23 18:30 Source: patient and old records reviewed Mode of arrival: ambulatory Limitations: no limitations History of Present Illness HPI narrative: 37 yo male with hx of HLD, GERD no abdominal surgery here with mild nausea, diarrhea and RLQ pain x 3 days - no travel, sick contacts, food exposures or hx of this in the past. MD complaint: abdominal pain Onset (ago): day(s) (3) Location: abdomen Radiation: non-radiation Severity: moderate Quality: aching Pain Consistency: constant Relieving factors: none Exacerbating factors: eating Associated symptoms: denies other symptoms Treatments prior to arrival: none Related Data Previous Rx's Medication Instructions Recorded fenofibrate 160 mg tablet 160 mg PO DAILY 90 days #90 tabs 06/15/21 omeprazole 40 mg capsule,delayed 40 mg PO DAILY 30 days #30 caps 06/15/21 release cyclobenzaprine 10 mg tablet 10 mg PO TID PRN muscle spasm 7 12/29/21 days #21 tabs lidocaine 4 % topical patch 1 patch topical DAILY PRN pain #10 12/29/21 ea witch sha 50 % topical pads 1 pad topical BID PRN skin 12/29/21 (Preparation H (Witch Sha)) irritation #48 ea docusate sodium 100 mg capsule 100 mg PO BID #60 caps 01/26/22 (Colace) ibuprofen 600 mg tablet 600 mg PO Q6H PRN pain #30 tabs 01/26/22 oxycodone 5 mg tablet 5 mg PO TID PRN pain #20 tabs 02/02/22 oxycodone-acetaminophen 5 mg-325 1 tab PO Q4-6H PRN pain #20 tabs 02/02/22 mg tablet (Percocet) ibuprofen 800 mg tablet 800 mg PO Q8H PRN pain #14 tabs 11/23/22 levofloxacin 500 mg tablet 500 mg PO DAILY #7 tabs 11/23/22 ibuprofen 600 mg tablet 600 mg PO Q6H PRN pain #30 tabs 11/25/22 oxycodone-acetaminophen 5 mg-325 1 tab PO Q4-6H PRN pain #20 tabs 11/25/22 mg tablet (Percocet) lactulose 20 gram/30 mL oral 20 g (30 mL) PO DAILY PRN 04/18/23 solution constipation #1,200 mL Allergies Allergy/AdvReac Type Severity Reaction Status Date / Time No Known Allergies Allergy Verified 04/18/23 14:47 Review of Systems 2 Review of Systems: Constitutional : No Weight loss, No Fever, No Chills ENT/Mouth : No sore throat, No Rhinorrhea Eyes: No Swelling, No Redness Cardiovascular : No Chest Pain, No SOB, NoEdema Respiratory : No Cough, No Sputum, No Wheezing Gastrointestinal : Positive Nausea, no Vomiting, positive Diarrhea, positive abdominal Pain, No Hematochezia, No Melena Genitourinary : No Dysuria, No Urinary Frequency, No Hematuria, No Urgency Musculoskeletal : No joint pain, No Myalgias, No Joint Swelling Skin : No Skin Lesions, No rash Neuro : No Weakness, No Numbness, No Dizziness, No Headache Psych : No Anxiety/Panic, No Depression Heme/Lymph: No Bruising, No Lymphadenopathy Endocrine : No Polyuria, No Polydipsia All other systems reviewed and are negative. [facility] Past Medical History Attestation statement: The following information was validated with the patient. Source: old records reviewed Medical History Perianal pain Anal lesion Overweight (BMI 25.0-29.9) GERD without esophagitis Low back pain Cervical muscle strain Mixed hyperlipidemia Right hand weakness Right hand paresthesia Hypopharyngeal lesion Surgical History History of incision and drainage (~11/25/22) History of hemorrhoidectomy History of facial surgery Family History Family History Father No problems noted. Mother Hypertension Social History Social History Housing: Apartment Alcohol intake: current Alcohol intake frequency: a few times a week Patient Tobacco Use Status: Never used Tobacco Smoked in Last 30 Days: No Second Hand Smoke Exposure: Yes Use of substances other than those prescribed or required for medical reasons: Yes Substance Use Type: Marijuana Substance Use Frequency: Daily Last Used Substance: Hours (ago) Advance Directives: No Advance Directives Information Provided: Yes service: No Current occupational status: employed Cognitive needs: No Hearing needs: No Vision needs: No Physical Exam ED Vital Signs: Vital Signs - 24 hr 04/18/23 14:45 04/18/23 18:38 Temperature 98.5 F 98 F Pulse Rate 81 87 Respiratory Rate 18 15 Blood Pressure 141/97 H 117/80 Pulse Oximetry 98 99 Oxygen Delivery Method Room Air Room Air BMI result Body Mass Index 27.0 Appearance: Alert. Oriented X3. No acute distress. Eyes: Pupils equal, round and reactive to light. ENT: Pharynx normal. Neck: Normal inspection. Neck supple. CVS: Normal heart rate and rhythm. Pulses normal. Respiratory: No respiratory distress. Breath sounds normal. Abdomen: Soft and moderate ttp in RLQ no rebound or guarding Skin: Skin warm and dry. Normal skin color. Normal skin turgor. Extremities: No lower extremity edema. No calf ttp Neuro: Oriented X 3. No motor deficit. No sensory deficit. Course Course Course Narrative: Patient complains of 5 days of right-sided low back/flank pain associated with diarrhea several times a day no vomiting, no other abdominal pain He is urinating more frequently, but no pain with urination He is tolerating p.o. but has episodes of diarrhea right after eating This is rapid medical exam done in triage pending full evaluation by ER provider Labs are ordered Medications Administered Discontinued Medications Generic Name Dose Route Start Last Admin Trade Name Freq PRN Reason Stop Dose Admin Sodium Chloride 1,000 mls @ 999 mls/hr 04/18/23 18:45 04/18/23 20:39 Ns IV 04/18/23 19:45 Infused .Q1H1M COLLEEN Infusion Iohexol 85 ml 04/18/23 19:45 04/18/23 19:46 Iohexol 350 Mg/Ml 100 Ml Infus..Btl IV 04/18/23 19:46 85 ml ONCE ONE Administration Ketorolac Tromethamine 15 mg 04/18/23 18:38 04/18/23 19:14 Ketorolac Tromethamine 15 Mg/Ml Vial IVPUSH 04/18/23 18:39 15 mg ONCE ONE Administration Medical Decision Making Medical Decision Making MDM Narrative: 37 yo male with PMH of GERD, HLD here with 3 days of RLQ pain and diarrhea / nausea but no fevers at this time will need labs, UA, IVF, IV toradol and CT scan for renal colic/appendicitis/colitis/diverticulitis. Differential Diagnosis Differential Diagnoses: The differential diagnosis associated with the presentation includes colitis, diverticulitis, renal colic Admission/Observation Consideration of admission/observation: Escalation of care including admission/observation considered labs reassuring, no acute pathology on CT scan Lab Data MDM Lab Attestation statement: I reviewed the patient's lab results. 04/18/23 15:03 04/18/23 15:03 Labs: Lab Results 04/18/23 04/18/23 Range/Units 15:03 15:08 WBC 10.6 (4.8-10.8) X10*3/uL RBC 4.54 L (4.60-5.80) X10*6/uL Hgb 13.4 L (14.0-18.0) g/dl Hct 40.8 L (42.0-52.0) % MCV 89.9 (80.0-98.0) fL MCH 29.5 (27.0-33.0) pg MCHC 32.8 (31.0-36.0) g/dl RDW 13.8 (11.0-16.0) % Plt Count 305 (160-400) X10*3/uL MPV 9.2 L (9.4-12.4) fL Immature Gran % (Auto) 0.5 H (0.0-0.4) % Neut % (Auto) 50.9 (45-73) % Lymph % (Auto) 36.4 (20-40) % Baldwin % (Auto) 9.8 (2-11) % Eos % (Auto) 1.6 (0-4) % Baso % (Auto) 0.8 (0-2) % Lymph # (Auto) 3.8 (1.2-4.9) X10*3/uL Baldwin # (Auto) 1.0 (0.1-1.2) X10*3/uL Eos # (Auto) 0.2 (0.0-0.4) X10*3/uL Baso # (Auto) 0.1 (0.0-0.2) X10*3/uL Abs Immat Gran (auto) 0.05 H (0.00-0.03) X10*3/uL Absolute Neuts (auto) 5.4 (2.0-8.3) x10*3/uL Absolute Nucleated RBC 0.000 (0.0-0.012) X10*3/uL Nucleated RBC % (auto) 0.0 (0.0-0.2) /100WBC Sodium 141 (135-145) mmol/L Potassium 4.2 (3.3-5.1) mmol/L Chloride 104 (96-108) mmol/L Carbon Dioxide 31 H (22-29) mmol/L Anion Gap 10 L (12-20) BUN 9 (9-16) mg/dL Creatinine 0.86 (0.5-1.4) mg/dL Estim Creat Clear Calc 122.8 Estimated GFR > 60 Random Glucose 92 (60-115) mg/dL Calcium 9.8 (8.4-10.2) mg/dL Total Bilirubin 0.2 (0.0-1.0) mg/dL Direct Bilirubin < 0.2 (0.0-0.5) mg/dL AST 13 (5-37) U/L ALT 10 (0-40) U/L Alkaline Phosphatase 89 (39-117) U/L Total Protein 7.9 (6.5-8.0) g/dL Albumin 4.3 (3.5-5.0) g/dL Lipase 48 (8-78) U/L Urine Color Yellow Urine Appearance Cloudy Urine pH 6.5 (5.0-9.0) Ur Specific Molina 1.020 (1.005-1.025) Urine Protein Negative (Neg-Trace) mg/dL Urine Glucose (UA) Negative (Negative) mg/dL Urine Ketones Negative (Negative) mg/dL Urine Blood Negative (Negative) Urine Nitrite Negative (Negative) Ur Leukocyte Esterase Negative (Negative) Independent Interpretation I performed an independent interpretation of an: CT Scan (no appendicitis) Radiology Impression Discussion of test interpretation with radiology: I have reviewed the radiologist's reading. External Record Review External record reviewed: Office record Prescription Management I considered prescription management with: Other Discharge Plan Discharge Clinical Impression: Constipation Abdominal pain Qualifiers: Abdominal location: right lower quadrant Qualified Code(s): R10.31 - Right lower quadrant pain Patient Disposition: Home, Self-Care Instructions: Constipation (ED), Abdominal Pain (ED) Additional Instructions: labs and CT scan were normal incidental findings of adrenal lesion - doctor needs to do outpatient imaging of adrenal gland call to get done in next month return for fevers, vomiting, worsening pain or any other concerns CT/CT abdomen pelvis w IV con IMPRESSION: 1. No acute intra-abdominal process seen. 2. Mild constipation. 3. A 1.6 cm right adrenal lesion measuring 54 silhouettes not a benign lesion. This can be further evaluated CT abdomen with and without contrast followed by delayed images. Prescriptions: New lactulose 20 gram/30 mL solution 20 g PO DAILY PRN (Reason: constipation) Qty: 1200 0RF No Action oxycodone-acetaminophen [Percocet] 5-325 mg tablet 1 tab PO Q4-6H PRN (Reason: pain) Qty: 20 0RF Rx Instructions: Partial Fill upon patient request. oxycodone 5 mg tablet 5 mg PO TID PRN (Reason: pain) Qty: 20 0RF Rx Instructions: Partial Fill upon patient request. docusate sodium [Colace] 100 mg capsule 100 mg PO BID Qty: 60 2RF ibuprofen 600 mg tablet 600 mg PO Q6H PRN (Reason: pain) Qty: 30 0RF oxycodone-acetaminophen [Percocet] 5-325 mg tablet 1 tab PO Q4-6H PRN (Reason: pain) Qty: 20 0RF Rx Instructions: Partial Fill upon patient request. ibuprofen 600 mg tablet 600 mg PO Q6H PRN (Reason: pain) Qty: 30 0RF cyclobenzaprine 10 mg tablet 10 mg PO TID PRN (Reason: muscle spasm) 7 Days Qty: 21 0RF lidocaine 4 % adhesive patch,medicated 1 patch topical DAILY PRN (Reason: pain) Qty: 10 0RF Rx Instructions: may leave on for up to 12 hrs Preparation H (Nacho Caputo) 50 % pads, medicated 1 pad topical BID PRN (Reason: skin irritation) Qty: 48 0RF fenofibrate 160 mg tablet 160 mg PO DAILY 90 Days Qty: 90 1RF omeprazole 40 mg capsule,delayed release(DR/EC) 40 mg PO DAILY 30 Days Qty: 30 1RF ibuprofen 800 mg tablet 800 mg PO Q8H PRN (Reason: pain) Qty: 14 0RF levofloxacin 500 mg tablet 500 mg PO DAILY Qty: 7 0RF
[2023-04-18 15:09] LABS: MANUAL DIFF FLAG NO
[2023-04-18 15:13] LABS: Basophils Absolute Auto 0.1 X10*3/uL (0.0-0.2); Basophils Percent Auto 0.8 % (0-2); Eosinophils Absolute Auto 0.2 X10*3/uL (0.0-0.4); Eosinophils Percent Auto 1.6 % (0-4); Hematocrit 40.8 % (42.0-52.0); Hemoglobin 13.4 g/dl (14.0-18.0); Imm Gran Abs Auto 0.05 X10*3/uL (0.00-0.03); Imm Gran Pct Auto 0.5 % (0.0-0.4); Lymphocytes Absolute Auto 3.8 X10*3/uL (1.2-4.9); Lymphocytes Percent Auto 36.4 % (20-40); Mean Corpuscular HGB Conc 32.8 g/dl (31.0-36.0); Mean Corpuscular Hemoglobin 29.5 pg (27.0-33.0); Mean Corpuscular Volume 89.9 fL (80.0-98.0); Mean Platelet Volume 9.2 fL (9.4-12.4); Monocytes Percent Auto 9.8 % (2-11); Neutrophils Absolute Auto 5.4 x10*3/uL (2.0-8.3); Neutrophils Percent Auto 50.9 % (45-73); Platelet Count 305 X10*3/uL (160-400); Red Blood Count 4.54 X10*6/uL (4.60-5.80); Red Cell Distribution Width 13.8 % (11.0-16.0); White Blood Count 10.6 X10*3/uL (4.8-10.8)
[2023-04-18 15:26] LABS: Appearance Urine Cloudy; Color Urine Yellow; Glucose Urine UA Negative (Negative); Leukocyte Esterase Urine Negative (Negative); Nitrite Urine Negative (Negative); PH 6.5 (5.0-9.0); Urine Blood Negative (Negative); Urine Ketones Negative (Negative); Urine Protein Negative (Neg-Trace)
[2023-04-18 15:37] LABS: Alanine Aminotransferase 10 U/L (0-40); Albumin Level 4.3 g/dL (3.5-5.0); Alkaline Phosphatase 89 U/L (39-117); Anion Gap 10 (12-20); Aspartate Amino Transferase 13 U/L (5-37); Bilirubin Direct < 0.2 mg/dL (0.0-0.5); Bilirubin Total 0.2 mg/dL (0.0-1.0); Blood Urea Nitrogen 9 mg/dL (9-16); Calcium 9.8 mg/dL (8.4-10.2); Carbon Dioxide 31 mmol/L (22-29); Chloride 104 mmol/L (96-108); Creatinine Clr Calc Pharmacy 122.8; Estimated Glomerular Filt Rate > 60; Glucose Random 92 mg/dL (60-115); Lipase 48 U/L (8-78); Potassium 4.2 mmol/L (3.3-5.1); Sodium 141 mmol/L (135-145); Total Protein 7.9 g/dL (6.5-8.0)
[2023-04-18 18:38] VITALS: BP 117/80; PULSE 87; RESP 15; TEMP 36.6; O2SAT 99
[2023-04-18] MEDS: 0.9 % Sodium Chloride 1,000 ML 999 ML IV (19:12)
[2023-04-18] MEDS: Ketorolac Tromethamine 15 MG/ML VIAL IVPUSH (19:14)
[2023-04-18] MEDS: iohexoL 350 MG/ML 100 ML INFUS..BTL 85 ML IV (19:46)
[2023-04-18 21:24] VITALS: BP 123/84; PULSE 90; RESP 18; TEMP 36.8; O2SAT 97
== END 2023-04-18 21:37 | disposition home or self-care (01) ==
PROVIDERS: Physician Assistant Medical; Emergency Provider Emergency Medicine; PCP Internal Medicine
DX: K59.00 Constipation, unspecified (principal); R10.31 Right lower quadrant pain; E78.2 Mixed hyperlipidemia; F12.90 Cannabis use, unspecified, uncomplicated; Z79.899 Other long term (current) drug therapy
CPT/HCPCS: 36415; 74177; 80048; 80076; 81003; 83690; 85025; 96361; 96374; 99284; J1885; Q9967

== ENCOUNTER 2023-05-17 08:52 | Outpatient (AMB) | payer BC, SELFPAY ==
--- NOTE | 2023-05-17 08:59 | A.OFFPC_ITS ---
Vital Signs 05/17/23 09:01 Height 5 ft 11 in Weight 202 lb 8 oz BMI 28.2 BP 120/70 Blood Pressure Location Lt brachial Position Sitting Pulse 84 Pulse Source Pulse Oximeter Pulse Oximetry (%) 97 Oxygen Delivery Method Room Air Intake Visit Reasons: lesion found on scan Intake Note: Patient is here to follow up on lesion found on scan. Pt was [place] [facility] [place] [facility] [place]. Clinical Phlebotomist Required: No Diamond Cleaner: Not Required per policy Accompanied by: Self / Same As Patient Allergies No Known Allergies Allergy (Verified 05/17/23 09:01) Tobacco use date assessed: 05/17/23 Dental Screening Dental Screen Date: 05/17/23 Did you have a dental visit in the last 12 months?: Yes Did you have a dental problem in the last 6 months where you did not have access to dental care?: No Was dental information given to patient?: Patient has dentist HPI lesion found on scan HPI Details 38-year-old male presents to the office for a follow-up visit. I am covering for the patient's primary care provider. Patient is complaining of persistent right abdominal and groin pain for the past month. He was initially seen at a walk-in and later at the ER. Lab work was unremarkable. Incidentally a left adrenal mass was found. Patient presents for a follow-up for this reason. Patient reports his symptoms of pain is still continuing. It is now radiating to the leg at times. Complains of epigastric discomfort with belching. Was on PPI but discontinued it due to cost issues. [facility] Medical History Perianal pain Anal lesion Overweight (BMI 25.0-29.9) GERD without esophagitis Low back pain Cervical muscle strain Mixed hyperlipidemia Right hand weakness Right hand paresthesia Hypopharyngeal lesion Surgical History History of incision and drainage (~11/25/22) History of hemorrhoidectomy History of facial surgery Family History (Updated 05/17/23 @ 09:00 by LULI Stone) Father No problems noted. Mother Hypertension Social History Housing: Apartment Alcohol intake: current Alcohol intake frequency: a few times a week Patient Tobacco Use Status: Never used Tobacco e-Cigarette/Vaping Use: Never Used Second Hand Smoke Exposure: Yes Substance Use Type: Marijuana service: No Current occupational status: employed Current occupation: construction Cognitive needs: No Hearing needs: No Vision needs: No Questionnaire PHQ-9 Over the last 2 weeks, how often have you been bothered by any of the following problems? 1. Little interest or pleasure in doing things: not at all 2. Feeling down, depressed, or hopeless: not at all 3. Trouble falling or staying asleep, or sleeping too much: not at all 4. Feeling tired or having little energy: not at all 5. Poor appetite or overeating: not at all 6. Feeling bad about yourself - or that you are a failure or have let yourself or your family down: not at all 7. Trouble concentrating on things, such as reading the newspaper or watching television: not at all 8. Moving or speaking so slowly that other people could have noticed. Or the opposite - being so fidgety or restless that you have been moving around a lot more than usual: not at all 9. Thoughts that you would be better off or of hurting yourself in some way: not at all Total score: 0 Depression Screening Interpretation: Negative Depression Screening Done: Yes Source: Developed by Drs. Petr Lopez, Cee Antunez, Mamadou Noble and colleagues, with an educational johnny from [employer]. Thrive Questionnaire Date Thrive assessed: 05/17/23 I am a: Patient What is your living situation today?: I have a steady place to live Within the past 12 months, did the food you bought not last and you didn't have the money to get more?: Never true Within the past 12 months, did you worry whether your food would run out before you got money to buy more?: Never true Do you have trouble paying for medicines?: No Do you have trouble getting transportation to medical appointments?: No Do you have trouble paying your heating and electricity bill?: No Do you have trouble taking care of your child, family member or friend?: No Do you have trouble with day-to-day activities such as bathing, preparing meals, shopping, managing finances, etc.?: No Are you currently unemployed and looking for a job?: No Are you interested in more education?: No Currently or been in a relationship where the following occur: no concerns reported AUDIT C Alcohol Use Questionnaire (AUDIT-C) 1. How often do you have a drink containing alcohol?: 2-4 times a month 2. How many drinks containing alcohol do you have on a typical day when you are drinking?: 1 or 2 Total Score: 2 SILVIA-7 AMB Questionnaire SILVIA-7 Date SILVIA - 7 assessed: 05/17/23 Feeling nervous, anxious, or on edge: 1 = Several days Not being able to stop or control worryin = Not at all Worrying too much about different things: 0 = Not at all Trouble relaxin = Not at all Being so restless that it is hard to sit still: 0 = Not at all Becoming easily annoyed or irritable: 0 = Not at all Feeling afraid as if something awful might happen: 1 = Several days Total SILVIA-7 score (0-4 normal; 5-9 mild; 10-14 moderate; 15-21 severe): 2 Source: Developed by Drs. Petr Lopez, Cee Antunez, Mamadou Noble and colleagues, with an educational johnny from [employer]. Physical exam (Primary Care) Vital Signs: Last Vital Signs Pulse 84 05/17/23 09:01 BP 120/70 05/17/23 09:01 Pulse Ox 97 05/17/23 09:01 Oxygen Delivery Method Room Air 05/17/23 09:01 BMI result Body Mass Index 28.2 Tobacco/Smoking Status: Tobacco use Status Tobacco use date assessed 05/17/23 05/17/23 09:11 Patient Tobacco Use Status Never used Tobacco 05/17/23 09:11 e-Cigarette/Vaping Use Never Used 05/17/23 09:11 PHQ-9: PHQ-9 Score PHQ-9: Total score 0 05/17/23 09:11 Depression Screening Interpretation: Negative Thrive Assessment: Date of Thrive Assessment Date Thrive assessed 05/17/23 05/17/23 09:11 Currently or been in a relationship where the following occur: no concerns reported Const General: cooperative and healthy appearing Nutritional Appearance: well nourished Orientation/consciousness: patient oriented x3 Limitations: no limitations HENMT Head: Yes normal to inspection Eyes General: appearance normal, both eyes and all related structures Neck Neck: Yes normal visual inspection Chest Chest palpation & inspection: normal palpation of entire chest wall Resp Effort & Inspection: normal respiratory effort GI Other: Abdomen: Bowel sounds well heard. No organomegaly. Right hip: Full range of internal and external rotation. Left hip: Full range of internal and external rotation. Neuro General: patient oriented x3 Assessment and Plan Assessment & Plan (1) Adrenal mass, left: Code(s): E27.8 - Other specified disorders of adrenal gland Plan: CT scan was discussed with the radiologist. Spent 15 minutes in the discussion. It was reported that it was a right adrenal mass, but actually it is a left adrenal mass. CT scan with and without contrast using the adrenal protocol was decided as the next imaging to order. The pain in the hip is probably unrelated to the mass. Ppi has been called in for his epigastric discomfort. Patient was advised to continue using the muscle relaxants. Orders: Orders CT abdomen pelvis wo/w IV con Today E27.8 - Other specified disorders of adrenal gland Coding Level of Care Code Est Pt Level 4 (41023) Diagnoses Adrenal mass, left E27.8
[2023-05-17 09:01] VITALS: BP 120/70; PULSE 84; O2SAT 97; BMI 28.2
== END 2023-05-17 10:12 | disposition home or self-care (01) ==
PROVIDERS: PCP Internal Medicine; Visit Provider Internal Medicine
DX: E27.8 Other specified disorders of adrenal gland (principal)
CPT/HCPCS: 99214

== ENCOUNTER 2023-10-19 08:32 | Outpatient (AMB) | payer BC, SELFPAY ==
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
[2023-10-19 08:56] VITALS: BP 110/80; PULSE 70; O2SAT 98; BMI 27.2
== END 2023-10-19 09:22 | disposition home or self-care (01) ==
PROVIDERS: PCP Internal Medicine; Visit Provider Internal Medicine
DX: R29.898 Other symptoms and signs involving the musculoskeletal system (principal)
CPT/HCPCS: 99214

== ENCOUNTER 2023-12-02 10:49 | Outpatient (AMB) | payer BC, SELFPAY ==
--- NOTE | 2023-12-02 11:01 | A.OFFPC_ITS ---
Vital Signs 12/02/23 11:02 Height 5 ft 11 in Weight 192 lb 2 oz BMI 26.8 BP 120/70 Blood Pressure Location Lt brachial Position Sitting Pulse 98 Pulse Source Pulse Oximeter Pulse Oximetry (%) 98 Oxygen Delivery Method Room Air Intake Visit Reasons: EDF [facility] 7.17 Fainting Dizziness Intake Note: Patient is here to follow-up after a visit the emergency department at [facility] on 11/23/23. Guest Room Attendant Required: No Criminology Professor: Not Required per policy Accompanied by: Self / Same As Patient Allergies No Known Allergies Allergy (Verified 12/02/23 11:02) Tobacco use date assessed: 12/02/23 Dental Screening Dental Screen Date: 05/17/23 HPI HPI Comments History of Present Illness Details 38 y/o male patient who presents to the clinic for ED follow up. He was evaluated at [facility] for Syncope episodes on 11/23/23 and discharged home. All the testings, ECG and Lab work came back normal. Today Pt reports snoring at night associated with episodes of no breathing while sleeping. He also dose endorse day time somnolence. Pt worried that he might day from this, and would like a quick solution. He also reports having CT Abdomen 2 months ago, which showed a Lesion on his Kidney. Pt would like to f/u on this. [facility] Medical History Perianal pain Anal lesion Overweight (BMI 25.0-29.9) GERD without esophagitis Low back pain Cervical muscle strain Mixed hyperlipidemia Right hand weakness Right hand paresthesia Hypopharyngeal lesion Surgical History History of incision and drainage (~11/25/22) History of hemorrhoidectomy History of facial surgery Family History Father No problems noted. Mother Hypertension Social History Housing: Apartment Alcohol intake: current Alcohol intake frequency: a few times a week Patient Tobacco Use Status: Never used Tobacco e-Cigarette/Vaping Use: Never Used Second Hand Smoke Exposure: Yes Substance Use Type: Marijuana service: No Current occupational status: employed Current occupation: construction Cognitive needs: No Hearing needs: No Vision needs: No Questionnaire Thrive Questionnaire Date Thrive assessed: 05/17/23 SILVIA-7 AMB Questionnaire SILVIA-7 Date SILVIA - 7 assessed: 05/17/23 Source: Developed by Drs. Petr Lopez, Cee Antunez, Mamadou Noble and colleagues, with an educational johnny from [employer]. Review of Systems Const All systems reviewed & are unremarkable except as noted in HPI and below Physical exam (Primary Care) Vital Signs: Last Vital Signs Pulse 98 12/02/23 11:02 BP 120/70 12/02/23 11:02 Pulse Ox 98 12/02/23 11:02 Oxygen Delivery Method Room Air 12/02/23 11:02 BMI result Body Mass Index 26.8 Tobacco/Smoking Status: Tobacco use Status Tobacco use date assessed 12/02/23 12/02/23 11:04 Patient Tobacco Use Status Never used Tobacco 12/02/23 11:04 e-Cigarette/Vaping Use Never Used 12/02/23 11:04 Thrive Assessment: Date of Thrive Assessment Date Thrive assessed 05/17/23 12/02/23 11:04 Const General: comfortable and no acute distress Orientation/consciousness: patient oriented x3 Resp Effort & Inspection: normal respiratory effort Cardio Heart sounds: S1 normal heart sound present and S2 normal heart sound present Neuro General: patient oriented x3, gait normal and moves all extremities Psych Speech and movement: Normal speech and movement present Vital Signs: Last Vital Signs Pulse 98 12/02/23 11:02 BP 120/70 12/02/23 11:02 Pulse Ox 98 12/02/23 11:02 Oxygen Delivery Method Room Air 12/02/23 11:02 BMI result Body Mass Index 26.8 Const General: comfortable and no acute distress Orientation/consciousness: patient oriented x3 Resp Effort & Inspection: normal respiratory effort Cardio Heart sounds: S1 normal heart sound present and S2 normal heart sound present Neuro General: patient oriented x3, gait normal and moves all extremities Psych Speech and movement: Normal speech and movement present Assessment and Plan Assessment & Plan (1) Syncope: Code(s): R55 - Syncope and collapse Qualifiers: Syncope type: unspecified Qualified Code(s): R55 - Syncope and collapse Plan: Suspecting Sleep Apnea due snoring at night. Will message PCP for Poss referral to Sleep clinic. Per record review, Pt had CT Abdomen back in 04/2023 which showed; There is a 1.6 cm left adrenal enhancing lesion measuring 54 Hounsfield units. The lesion is new since the last exam 01/16/2014. Recommend follow-up with a CT adrenal protocol. Advised Pt to f/u with PCP regarding this issue. Coding Level of Care Code Est Pt Level 4 (07797) Diagnoses Syncope, unspecified syncope type R55 Syncope type: unspecified Comment Spent 20 minutes reviewing Hospital notes.
[2023-12-02 11:02] VITALS: BP 120/70; PULSE 98; O2SAT 98; BMI 26.8
== END 2023-12-02 11:30 | disposition home or self-care (01) ==
PROVIDERS: PCP Internal Medicine; Visit Provider Nurse Practitioner Family
DX: R55 Syncope and collapse (principal)
CPT/HCPCS: 99214

== ENCOUNTER 2024-06-25 09:53 | Emergency (ER) | payer BC, SELFPAY ==
--- NOTE | ~2024-06-25 | XR_ITS ---
CLINICAL HISTORY: pain swelling 3 view right shoulder Comparison: CR - SHOULDER RIGHT 29423RY - 09/01/18 10:59 EDT Findings: No fracture or dislocation. Mild acromioclavicular osteoarthritis. The glenohumeral joint is maintained. IMPRESSION: 1. No acute findings. This document has been electronically signed by: Bari Garcia DO on 06/25/2024 10:35:45
[2024-06-25 09:55] VITALS: BP 145/81; PULSE 105; RESP 16; TEMP 36.5; O2SAT 98; BMI 27.7
--- OUTSIDE RECORDS SUMMARY | 2024-06-25 10:33 | XMS_ITS | Clinical Summary ---
Author Organization [facility] ity Address [address] [place] [address] Care Team Providers Care Recovery Unit Operator Name Role Phone Unavailable Primary Care Provider Unavailabl e Social History Tobacco Use Types Packs/Day Years Used Date Smoking Tobacco: Never Assessed Sex and Gender Information Value Date Recorded Sex Assigned at Not on file Legal Sex Male 3:45 PM EDT Gender Identity Not on file Sexual Orientation Not on file Plan of Treatment Health Maintenance Due Date Last Done Comments DTaP,Tdap,and Td Vaccines (1 - Tdap) 2002 Hepatitis B Vaccines (1 of 3 - 19+ 3-dose series) 2002 COVID-19 Vaccine (2023-2 5 season) 2024 Influenza Vaccine (#1) 2024 Cholesterol Screening (Lipid Panel) 03/04/2024 Depression Screening 03/04/2024 HIV Screening 03/04/2024 Hepatitis C Screening 03/04/2024 Social Influencers of Health Screening 03/04/2024 HIB Vaccines Aged Out No longer eligi ble based on patient's age to complete this topic HPV Vaccines Aged Out No longer eligi ble based on patient's age to complete this topic Hepatitis A Vaccines Aged Out No long er eligible based on patient's age to complete this topic IPV Vaccines Aged Out No longer eligi ble based on patient's age to complete this topic MMR Vaccines Aged Out No longer eligi ble based on patient's age to complete this topic Meningococcal ACWY Vaccine Aged Out N o longer eligible based on patient's age to complete this topic Meningococcal B Vacine Aged Out No lo nger eligible based on patient's age to complete this topic Pneumococcal Vaccine: Pediat rics (0 to 5 Years) and At-Risk Patients (6 to 64 Years) Aged Out No longer eligible b ased on patient's age to complete this topic RSV Immunization Patients Un may 20 months Aged Out No longer eligible b ased on patient's age to complete this topic Varicella Vaccines Aged Out No longer eligible based on patient's age to complete this topic
--- OUTSIDE RECORDS SUMMARY | 2024-06-25 10:33 | XMS_ITS | Clinical Summary ---
Author Organization [facility] Address [address] [place] [address] Care Team Providers Care Cardiac Cath Lab Manager Name Role Phone Chuck Dominguez Primary Care Provider [phone] Allergies No known active allergies Immunizations Immunization Administration Dates Next Due Tetanus and Diphtheria Toxoi ds, Adsorbed, Preservative Free, for Adult Use (5 Lf of Tetanus Toxoid and 2 Lf of Diphtheria Toxoid) 06/11/2022 Social History Tobacco Use Types Packs/Day Years Used Date Smoking Tobacco: Never Assessed Sex and Gender Information Value Date Recorded Sex Assigned at Not on file Legal Sex Male 7:54 AM EST Gender Identity Not on file Sexual Orientation Not on file Last Filed Vital Signs Vital Sign Reading Time Taken Comments Blood Pressure 100/65 06/11/2022 8:02 AM EST Pulse 119 06/11/2022 8:02 AM EST Temperature 36.4 ??C (97.6 ??F) 06/11/2022 8:02 AM ES T Respiratory Rate 18 06/11/2022 8:02 AM EST Oxygen Saturation 99% 06/11/2022 8:02 AM EST Inhaled Oxygen Concentration - - Weight 86.2 kg (190 lb) 06/11/2022 8:02 AM EST Height - - Body Mass Index - - Plan of Treatment Health Maintenance Due Date Last Done Comments HIV Screening 1983 Varicella Vaccines (1 of 2 - 13+ 2-dose series) 1996 Hepatitis B Vaccines (2 of 3 - 3-dose series) 09/02/1998 08/05/1998 DTaP,Tdap,and Td Vaccines (1 - Tdap) 06/12/2022 06/11/2022 COVID-19 Vaccine (1 - 2023-2 5 season) 2024 Influenza Vaccine (#1) 2024 Alcohol/Substance Use Screening 05/09/2024 RSV Vaccine (60+ years old a nd patients) (1 - 1-dose 75+ series) 2058 Pneumococcal Vaccine: Pediat marielle (0-5 Years) and At-Risk Patients (6-50 Years) Aged Out No longer eligible b ased on patient's age to complete this [place] [address] [facility] HMO/POS Care Teams Cardiac Cath Lab Manager Relationship Specialty Start Date End Date Chuck Dominguez [address] [place] [address] [place] [address] PCP - General Internal Medicine 06/11/22
--- NOTE | 2024-06-25 10:35 | ED.EXTPRO ---
HPI - Extremity Problem General Chief complaint: Extremity Problem Stated complaint: R Shoulder Pain Time Seen by Provider: 06/25/24 10:22 Source: patient and old records reviewed Mode of arrival: ambulatory Limitations: no limitations History of Present Illness ED Provider: FRANCIS COLE Narrative: 39 yo male with PMH of GERD, HLD, perirectal abscess here with c/o 2 weeks worsening R shoulder pain denies falls no numbness weakness. He is R handed states it hurts to lift or put a shirt on. No prior surgery to joint. NO IVDA. He states he cannot take it anymore Complaint: joint pain Onset (ago): week(s) (2) Pain Consistency: constant Location: right and upper extremity Quality: aching Radiation: proximal Relieving factors: immobilization Exacerbating factors: range of motion and palpation Associated symptoms: denies other symptoms Related Data Previous Rx's ?Medication ?Instructions ?Recorded pantoprazole 40 mg tablet,delayed 40 mg PO DAILY #30 tabs 05/17/23 release cyclobenzaprine 10 mg tablet 10 mg PO TID PRN muscle spasm #20 06/25/24 tabs hydrocodone 5 mg-acetaminophen 325 1 tab PO Q6H PRN pain #10 tabs 06/25/24 mg tablet prednisone 20 mg tablet 40 mg (2 x 20 mg) PO DAILY 5 days 06/25/24 #10 tabs Allergies Allergy/AdvReac Type Severity Reaction Status Date / Time No Known Allergies Allergy Verified 06/25/24 09:56 Review of Systems Review of Systems: Constitutional : No Fever, No Chills ENT/Mouth : No Ear Pain, No Hoarseness, No sore throat Eyes: No Eye Pain, No Swelling, No Redness, No Foreign Body Cardiovascular : No Chest Pain, No SOB Respiratory : No Cough, No Dyspnea Gastrointestinal : No Nausea, No Vomiting, No Diarrhea, No abdominal Pain Genitourinary : No Dysuria, No Hematuria Musculoskeletal : positive joint pain, No Myalgias, No Joint Swelling Skin : No Skin lacerations, No rash Neuro : No Weakness, No Numbness, No Loss of Consciousness, No Dizziness, No Headache All other systems reviewed and are negative PMFSH Past Medical History Attestation statement: The following information was validated with the patient. Source: old records reviewed Medical History Perianal pain Anal lesion Overweight (BMI 25.0-29.9) GERD without esophagitis Low back pain Cervical muscle strain Mixed hyperlipidemia Right hand weakness Right hand paresthesia Hypopharyngeal lesion Surgical History History of incision and drainage (~11/25/22) History of hemorrhoidectomy History of facial surgery Family History Family History Father No problems noted. Mother Hypertension Social History Social History Housing: Apartment Alcohol intake: current Alcohol intake frequency: a few times a week Patient Tobacco Use Status: Never used Tobacco e-Cigarette/Vaping Use: Never Used Second Hand Smoke Exposure: Yes Substance Use Type: Marijuana Advance Directives: No Advance Directives Information Provided: No service: No Current occupational status: employed Current occupation: construction Cognitive needs: No Hearing needs: No Vision needs: No Physical Exam Vital Signs: Vital Signs: Last Vital Signs Temp 97.7 F 06/25/24 09:55 Pulse 105 H 06/25/24 09:55 Resp 16 06/25/24 09:55 BP 145/81 H 06/25/24 09:55 Pulse Ox 98 06/25/24 09:55 O2 Del Method Room Air 06/25/24 09:55 BMI result Body Mass Index 27.7 Appearance: Alert. Oriented X3. No acute distress. Eyes: Pupils equal, round and reactive to light. ENT: Pharynx normal. Neck: Normal inspection. Neck supple. CVS: Normal heart rate and rhythm. Pulses normal. Respiratory: No respiratory distress. Abdomen: atraumatic Skin: Skin warm and dry. Normal skin color. Normal skin turgor. Extremities: No lower extremity edema. R shoulder ttp along AC joint no effusion, no rash, distal NV intact refuses to do rotator cuff tests but cannot keep elevated against pressure, cannot reach behind back Neuro: Oriented X 3. No motor deficit. No sensory deficit. CN2-12 intact Medical Decision Making Medical Decision Making MDM Narrative: 39 yo male with PMH of GERD, HLD, perirectal abscess here with c/o R shoulder pain he is R handed on exam no signs of infection or septic joint he is NV intact could be tendonitis vs rotator cuff pathology will treat [facility] supportive meds and 3 days of sling. Differential Diagnosis Differential Diagnoses: The differential diagnosis associated with the presentation includes strain, arthralgia, tendonitis, rotator cuff Independent Interpretation I performed an independent interpretation of an: Plain X-Ray (no fracture) Radiology Impression Discussion of test interpretation with radiology: I have reviewed the radiologist's reading. Prescription Management I considered prescription management with: Pain Medication and Other Procedures Orthopedic Splinting/Casting Injury #1: Side: right Upper Extremity Injury Location: shoulder Upper Extremity Immobilizer: sling/shoulder immobilizer Discharge Plan Discharge Clinical Impression: Acute shoulder pain Patient Disposition: Home, Self-Care Instructions: Tendinitis (ED), Shoulder Pain (ED) Additional Instructions: SLING FOR 3 DAYS follow up with orthopedics call to schedule this could be possible rotator cuff injury or pain limit lifting to 5lbs for next 1 week return for worsening pain, fevers, increased swelling, weakness/numbness or any other concerns Prescriptions: New cyclobenzaprine 10 mg tablet 10 mg PO TID PRN (Reason: muscle spasm) Qty: 20 0RF hydrocodone-acetaminophen 5-325 mg tablet 1 tab PO Q6H PRN (Reason: pain) Qty: 10 0RF Rx Instructions: partial fill okay; Partial Fill upon patient request. prednisone 20 mg tablet 40 mg PO DAILY 5 Days Qty: 10 0RF No Action pantoprazole 40 mg tablet,delayed release (DR/EC) 40 mg PO DAILY Qty: 30 1RF Referrals: [facility] [Provider Group] Stand Alone Forms: Work/School Release Print Language: Spanish
--- NOTE | 2024-06-25 11:15 | PC.NURSE ---
sling and swathe applied to right shoulder- dc papers provided- all questions were answered
[2024-06-25 11:16] VITALS: BP 145/81; PULSE 105; RESP 16; TEMP 36.5; O2SAT 98
== END 2024-06-25 11:16 | disposition home or self-care (01) ==
PROVIDERS: Emergency Provider Emergency Medicine; PCP Internal Medicine
DX: M25.511 Pain in right shoulder (principal)
CPT/HCPCS: 29105; 73030; 99283

== ENCOUNTER → 2024-06-25 10:00 | Outpatient (BNV) | payer BC, SELFPAY | PROVIDERS: Emergency Provider Emergency Medicine; PCP Internal Medicine; Visit Provider Radiology Diagnostic Radiology | DX: M25.511 Pain in right shoulder (principal) | CPT/HCPCS: 73030 ==

== ENCOUNTER 2024-10-17 14:50 | Outpatient (AMB) | payer OTHER, SELFPAY ==
[2024-10-17 15:04] VITALS: BP 142/96; PULSE 100; RESP 24; TEMP 36.8; O2SAT 97; BMI 28.8
--- NOTE | 2024-10-17 15:04 | MHC.PC.OV ---
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 Accompanied by: Self / Same As Patient Allergies No Known Allergies Allergy (Verified 10/17/24 15:37) Medication List - Last Reconciled 10/17/24 by RAPHAEL Saxena cyclobenzaprine 10 mg PO TID PRN lidocaine 5% 1 patch topical DAILY naproxen 500 mg PO BID pantoprazole 40 mg PO DAILY Tobacco use date assessed: 10/17/24 Dental Screening Dental Screen Date: 10/17/24 Did you have a dental visit in the last 12 months?: Yes Did you have a dental problem in the last 6 months where you did not have access to dental care?: No Was dental information given to patient?: Patient has dentist HPI workers comp HPI Details The patient is a 39-year-old male who was presenting with work-related back injury 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 He was at work and went to place the vacuum down and immediately felt back pain Reports that his photographic supervisor heard him scream out and came in help him down to the ground He was sent to [facility] and there they evaluated him; he was placed on medications and was ordered PT States that he attempted PT 3 times and each time they had to aborted the session because the pain was unbearable The pain starts from in the center of his lower back and runs down both legs pain is 8/10 constantly, but becomes sharper with activity, reports that 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 Reports that he is having issues driving in cars For treatments, Diclofenac-he was uable to tolerate due to the stomach issues. He is currently on Naproxen 500mg prn, cyclobenzaprine 10 TID, but mostly taking at night due to feeling drowsy on this medication. He is also using the lidocaine patches On exam: +tenderness lumbar tenderness, reports feeling numbness in his coccyx region No equina symptoms, [facility] Medical History Perianal pain Anal lesion Overweight (BMI 25.0-29.9) GERD without esophagitis Low back pain Cervical muscle strain Mixed hyperlipidemia Right hand weakness Right hand paresthesia Hypopharyngeal lesion Surgical History History of incision and drainage (~11/25/22) History of hemorrhoidectomy History of facial surgery Family History Father No problems noted. Mother Hypertension Social History Housing: Apartment Alcohol intake: current Alcohol intake frequency: a few times a week Patient Tobacco Use Status: Never used Tobacco e-Cigarette/Vaping Use: Never Used Second Hand Smoke Exposure: Yes Substance Use Type: Marijuana service: No Current occupational status: employed Current occupation: construction Cognitive needs: No Hearing needs: No Vision needs: No Questionnaire PHQ-9 Over the last 2 weeks, how often have you been bothered by any of the following problems? 1. Little interest or pleasure in doing things: several days 2. Feeling down, depressed, or hopeless: not at all 3. Trouble falling or staying asleep, or sleeping too much: several days 4. Feeling tired or having little energy: not at all 5. Poor appetite or overeating: not at all 6. Feeling bad about yourself - or that you are a failure or have let yourself or your family down: not at all 7. Trouble concentrating on things, such as reading the newspaper or watching television: not at all 8. Moving or speaking so slowly that other people could have noticed. Or the opposite - being so fidgety or restless that you have been moving around a lot more than usual: not at all 9. Thoughts that you would be better off or of hurting yourself in some way: not at all Total score: 2 Depression Screening Interpretation: Negative Depression Screening Done: Yes 14825 - PHQ-9 Billing: Yes Source: Developed by Drs. Petr Lopez, Cee Antunez, Mamadou Noble and colleagues, with an educational johnny from [employer]. Thrive Questionnaire Date Thrive assessed: 10/17/24 I am a: Patient What is your living situation today?: I have a steady place to live Within the past 12 months, did the food you bought not last and you didn't have the money to get more?: Often true Within the past 12 months, did you worry whether your food would run out before you got money to buy more?: Never true Do you have trouble paying for medicines?: No Do you have trouble getting transportation to medical appointments?: No Do you have trouble paying your heating and electricity bill?: No Do you have trouble taking care of your child, family member or friend?: No Do you have trouble with day-to-day activities such as bathing, preparing meals, shopping, managing finances, etc.?: No Are you currently unemployed and looking for a job?: No Are you interested in more education?: No Please select the resources that you would like help with: None Currently or been in a relationship where the following occur: No concerns reported THRIVE Score: 1 AUDIT C Alcohol Use Questionnaire (AUDIT-C) 1. How often do you have a drink containing alcohol?: Never Total Score: 0 Score Reviewed/Action Taken: No SILVIA-7 AMB Questionnaire SILVIA-7 Date SILVIA - 7 assessed: 10/17/24 Feeling nervous, anxious, or on edge: 0 = Not at all Not being able to stop or control worryin = Not at all Worrying too much about different things: 0 = Not at all Trouble relaxin = Several days Being so restless that it is hard to sit still: 1 = Several days Becoming easily annoyed or irritable: 1 = Several days Feeling afraid as if something awful might happen: 0 = Not at all Total SILVIA-7 score (0-4 normal; 5-9 mild; 10-14 moderate; 15-21 severe): 3 Source: Developed by Drs. Petr Lopez, Cee Antunez, Mamadou Noble and colleagues, with an educational johnny from [employer]. SILVIA-7 Assessment Billing SILVIA-7 Assessment Tool: SILVIA-7 Assessment 31728 Review of Systems Const Denies headache(s) Eyes Denies loss of vision ENT Denies vertigo, Denies dizziness and Denies headache(s) Card Denies chest pain, Denies leg edema and Denies lightheadedness Resp Denies cough, Denies hemoptysis and Denies wheezing GI Denies abdominal pain, Denies melena, Denies constipation, Denies fecal incontinence, Denies diarrhea and Denies vomiting Denies dysuria, Denies urinary frequency, Denies urinary incontinence and Denies urinary urgency Musc Reports back pain, Denies arthralgias, Denies joint swelling, Denies numbness, Reports radiating pain into limb (down bilateral posterior legs) and Denies tingling Skin/Breast Denies dry skin and Denies lesions Neuro Denies Abnormal speech present, Denies vertigo, Denies dizziness, Denies headache(s), Denies loss of vision, Denies numbness and Denies tingling Luis/Lymph Denies easy bleeding and Denies easy bruising Aller/Immun Denies wheezing Physical exam (Primary Care) Vital Signs: Last Vital Signs Temp 98.3 F 10/17/24 15:04 Pulse 100 10/17/24 15:04 Resp 24 H 10/17/24 15:04 BP 142/96 H 10/17/24 15:04 Pulse Ox 97 10/17/24 15:04 Oxygen Delivery Method Room Air 10/17/24 15:04 BMI result Body Mass Index 28.8 Tobacco/Smoking Status: Tobacco use Status Tobacco use date assessed 10/17/24 10/17/24 15:21 Patient Tobacco Use Status Never used Tobacco 10/17/24 15:21 e-Cigarette/Vaping Use Never Used 10/17/24 15:21 PHQ-9: PHQ-9 Score PHQ-9: Total score 2 10/17/24 15:51 Depression Screening Interpretation: Negative Thrive Assessment: Date of Thrive Assessment Date Thrive assessed 10/17/24 10/17/24 15:21 Currently or been in a relationship where the following occur: No concerns reported Const General: healthy appearing, no acute distress, alert and awake Nutritional Appearance: well nourished Orientation/consciousness: oriented to person, oriented to place and oriented to time HENMT Ears: external ears normal General nose exam: Normal external nose present Eyes Conjunctivae: conjunctivae normal Sclerae: sclerae normal Pupils: Equal, round and reactive pupils present Neck Neck: Yes no lymphadenopathy and Yes no JVD Thyroid: Thyroid normal Carotids: no bruits Resp Effort & Inspection: normal respiratory effort and not tachypneic Auscultation: no crackles, no rales, no rhonchi and no wheezes Cardio Rate: regular rate Rhythm: regular rhythm Heart sounds: no murmurs and normal S1 and S2 GI Palpation (GI): Soft to palpation, nontender, no hepatomegaly and no splenomegaly Auscultation: normal bowel sounds General: Yes no CVA tenderness Back/Spine/Pelvis Back: no CVA tenderness Thoracic/Lumbar Spine: lumbar spinal tenderness and straight leg raise positive bilateral at 40 degrees Skin General skin exam: no rashes or lesions noted and dry skin Neuro General: oriented to person, oriented to place and oriented to time Cranial nerves: Yes Equal, round and reactive pupils present Speech: No Abnormal speech present Gait exam (Neuro): Normal gait present Motor exam (neuro): no tremor noted Extrem Right upper extremity: full ROM Left upper extremity: full ROM Right lower extremity: full ROM; no edema Left lower extremity: full ROM; no edema Psych Mental Status: mental status grossly normal Speech and movement: Normal speech and movement present Affect: normal affect Attitude: cooperative Thought process: Normal thought process present Coding Level of Care Code Est Pt Level 3 (14512) Diagnoses Work related injury Y99.0 Low back pain radiating to both legs M54.50; M79.604; M79.605 Additional Codes SILVIA-7 Assessment Billing - SILVIA-7 Assessment Tool: SILVIA-7 Assessment 09146 ([id number]) PHQ-9 - 80171 - PHQ-9 Billing: Yes ([id number]) Time Spent (min) 36 Assessment & Plan Assessment & Plan (1) Work related injury: Code(s): Y99.0 - Civilian activity done for income or pay Category: Medical Plan: The patient is not able to work due to his increased pain and difficulty walking. In office, he is slow moving and grimacing with every move. Will send the patient for a lumbar xray to evaluate is back further. (2) Low back pain radiating to both legs: Code(s): M54.50 - Low back pain, unspecified; M79.604 - Pain in right leg; M79.605 - Pain in left leg Category: Medical Plan: Work-related injury Evaluated at [facility], and was treated with hydrocodone-acetaminophen 5-325 and prednisone 40 mg x5 days. The patient was referred to PT. He attended 3 unsuccessful sessions that he was not able to participate in due to his increased pain. Diclofenac-he was uable to tolerate due to stomach issues. He is currently on Naproxen 500mg prn, cyclobenzaprine 10 TID, but mostly taking at night due to feeling drowsy on this medication. He is also using the lidocaine patches with some relief. Lumbar x-ray ordered to further evaluate Orders: Orders XR lumbar spine 2-3V Today M54.50 - Low back pain, unspecified, M79.604 - Pain in right leg, M79.605 - Pain in left leg
--- OUTSIDE RECORDS SUMMARY | 2024-10-17 17:03 | XMS_ITS | Referral Summary ---
Author Organization [facility] Address [address] [place] [address] Care Team Providers Care Development Administrator Name Role Phone Chuck Dominguez Primary Care Provider [phone] Allergies No known active allergies Immunizations Immunization [...] Mass Index - - Plan of Treatment Not on file Insurance [facility] HMO/POS Care Teams Development Administrator Relationship Specialty Start Date End Date Chuck Dominguez [address] [place] [address] [place] [address] PCP - General Internal Medicine 06/11/22
== END 2024-10-17 16:07 | disposition home or self-care (01) ==
LOC: HO.HMCH 14:51
PROVIDERS: PCP Internal Medicine
DX: M54.50 Low back pain, unspecified (principal); M79.604 Pain in right leg; M79.605 Pain in left leg; Y99.0 Civilian activity done for income or pay

== ENCOUNTER → 2024-10-17 14:50 | Outpatient (BNVA) | payer BC, SELFPAY | PROVIDERS: PCP Internal Medicine | DX: M79.604 Pain in right leg (principal); M79.605 Pain in left leg; M54.50 Low back pain, unspecified | CPT/HCPCS: 96127; 99212 ==

== ENCOUNTER 2024-10-18 07:44 | Outpatient (REF) | payer OTHER, BC, SELFPAY ==
--- NOTE | ~2024-10-18 | XR_ITS ---
CLINICAL HISTORY: M54.50 - Low back pain, unspecified 3 views lumbar spine Comparison: None Findings: Normal vertebral body alignment. No acute fractures or dislocation. No significant degenerative change. IMPRESSION: No acute findings. This document has been electronically signed by: Shauna Mcfarlane MD on 10/18/2024 20:30:02
--- OUTSIDE RECORDS SUMMARY | 2024-10-18 07:47 | XMS_ITS | Referral Summary ---
Author Organization [facility] Address [address] [place] [address] Care Team Providers Care Grain Grader Name Role Phone Chuck Dominguez Primary Care Provider [phone] Allergies No known active allergies Immunizations Immunization [...] Plan of Treatment Not on file Insurance [facility] HMO/POS Care Teams Grain Grader Relationship Specialty Start Date End Date Chuck Dominguez [address] [place] [address] [place] [address] PCP - General Internal Medicine 06/11/22
== END 2024-10-18 07:45 | disposition home or self-care (01) ==
LOC: HO.XRAY 07:44
DX: M54.50 Low back pain, unspecified (principal); M79.604 Pain in right leg; M79.605 Pain in left leg
CPT/HCPCS: 72100

== ENCOUNTER → 2024-10-18 07:48 | Outpatient (BNV) | payer OTHER, SELFPAY | PROVIDERS: Visit Provider Radiology Diagnostic Radiology | DX: M54.50 Low back pain, unspecified (principal) | CPT/HCPCS: 72100 ==

== ENCOUNTER 2024-10-18 14:43 | Outpatient (AMB) | payer BC, SELFPAY ==
--- NOTE | 2024-10-18 14:47 | A.OFFVIS_ITS ---
Vital Signs 10/18/24 15:14 Height 5 ft 11 in Weight 206 lb BMI 28.7 Intake Visit Reasons: ER-back pain s/p WC injury 09/18/24 Intake Note: Jeromy is a 39 year old male who presents with progressively worsening low back pain which radiates down both of his legs. The patient initially had right shoulder pain after suffering a work related injury on 09/18/2024. He states th at his right shoulder pain has resolved completely. He describes his back pain as sharp and severe in nature. His pain radiates down both of his legs. He also reports intermittent weakness in both of his legs. The patient denies any prior back surgery. He denies any pain in his back prior to his work injury on 09/18/2024. Allergies No Known Allergies Allergy (Verified 10/18/24 14:51) Medication List - Last Reconciled 10/19/24 by Issac Morales MD cyclobenzaprine 10 mg PO TID PRN lidocaine 5% 1 patch topical DAILY naproxen 500 mg PO BID pantoprazole 40 mg PO DAILY [facility] Medical History Perianal pain Anal lesion Overweight (BMI 25.0-29.9) GERD without esophagitis Low back pain Cervical muscle strain Mixed hyperlipidemia Right hand weakness Right hand paresthesia Hypopharyngeal lesion Surgical History History of incision and drainage (~11/25/22) History of hemorrhoidectomy History of facial surgery Family History Father No problems noted. Mother Hypertension Social History Housing: Apartment Alcohol intake: current Alcohol intake frequency: a few times a week Patient Tobacco Use Status: Never used Tobacco e-Cigarette/Vaping Use: Never Used Second Hand Smoke Exposure: Yes Substance Use Type: Marijuana service: No Current occupational status: employed Current occupation: construction Cognitive needs: No Hearing needs: No Vision needs: No Physical Exam Vital Signs: BMI result Body Mass Index 28.7 Const Other: Well-nourished well-developed very friendly male awake alert and oriented x3 in no acute distress Back/Spine/Pelvis Other: Low back examination shows bilateral paraspinal muscle tenderness, pain with range of motion, positive straight leg raise test bilaterally at 70 degrees, 4/5 strength with testing of his bilateral hip flexors and knee extensors Results Reviewed Results Reviewed: X-rays of the patient's lumbar spine show diffuse degenerative disc disease, no acute bony abnormalities Assessment & Plan Assessment & Plan (1) Low back pain radiating to both legs: Code(s): M54.50 - Low back pain, unspecified; M79.604 - Pain in right leg; M79.605 - Pain in left leg Category: Medical Plan Mr. Forrest presents with progressively worsening low back pain which radiates into both of his legs as well as associated bilateral lower extremity weakness most likely due to a disc herniation. Thus, I will send the patient for an MRI of his lumbar spine for further evaluation. He will continue with his activity modifications in the meantime. If the patient is not currently working I will keep him out of work until his MRI findings are available. Feel free to call me at any time should questions regarding his orthopedic management arise. I spent 22 minutes in reviewing the patient's records and imaging studies, seeing the patient and documenting in the medical record. Orders: Orders MR lumbar spine wo con 10/18/24 M54.50 - Low back pain, unspecified, M79.604 - Pain in right leg, M79.605 - Pain in left leg Coding Level of Care Code New Pt Level 3 (79655) Complex EM visit Add On G2211 Diagnoses Low back pain radiating to both legs M54.50; M79.604; M79.605
[2024-10-18 15:14] VITALS: BMI 28.7
--- OUTSIDE RECORDS SUMMARY | 2024-10-18 17:19 | XMS_ITS | Referral Summary ---
Author Organization [facility] Address [address] [place] [address] Care Team Providers Care Cytogenetic Technician Name Role Phone Chuck Dominguez Primary Care Provider [phone] Allergies No known active allergies Immunizations Immunization [...] Plan of Treatment Not on file Insurance [facility] HMO/POS Care Teams Cytogenetic Technician Relationship Specialty Start Date End Date Chuck Dominguez [address] [place] [address] [place] [address] PCP - General Internal Medicine 06/11/22
== END 2024-10-18 15:22 | disposition home or self-care (01) ==
PROVIDERS: PCP Internal Medicine; Visit Provider Orthopaedic Surgery
DX: M54.50 Low back pain, unspecified (principal); M79.604 Pain in right leg; M79.605 Pain in left leg
CPT/HCPCS: 99203

== ENCOUNTER 2024-11-17 08:42 | Outpatient (REF) | payer OTHER, SELFPAY ==
--- NOTE | ~2024-11-17 | MR_ITS ---
EXAMINATION: MR LUMBAR SPINE WITHOUT CONTRAST CLINICAL INFORMATION: Low back pain, unspecified. COMPARISON: None available. TECHNIQUE: MRI of the lumbar spine was obtained using routine sequences without contrast. FINDINGS: Last rib-bearing vertebra labeled T12. No bone marrow STIR signal abnormality. There is disc desiccation with decreased intervertebral disc height at L5-S1. There is normal alignment. Conus medullaris ends at superior endplate of L1 with normal signal. Abnormal posterior elements/lamina at L4-5 and L5-S1 levels. No pseudomeningocele/meningocele. Prominent epidural fat in a circumferential fashion and L5-S1 and sacrum. T12-L1: No disc herniation. No neuroforamina stenosis. L1-2: No disc herniation. No neuroforamina stenosis. L2-3: No disc herniation. No neuroforamina stenosis. L3-4: Broad-based disc bulging. No central spinal canal or neuroforamina stenosis. L4-5: Broad-based disc bulging. No central spinal canal or neuroforamina stenosis. L5-S1: Left subarticular and foraminal broad-based disc herniation abutting the left S1 nerve root on its lateral recess. Left neuroforamina narrowing encroaching the left L5 nerve root. No prevertebral compartment hematoma, mass or fluid collection. MR/MR lumbar spine wo con IMPRESSION: Left subarticular and foraminal broad-based herniated disc at L5-S1 abutting the left S1 and likely encroaching the left L5 nerve roots. 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 Electronically signed by: Lebron Gomes MD 11/19/2024 08:34 AM EDT
--- OUTSIDE RECORDS SUMMARY | 2024-11-17 08:48 | XMS_ITS | Referral Summary ---
Author Organization [facility] Address [address] [place] [address] Care Team Providers Care Classer Name Role Phone Chuck Dominguez Primary Care Provider [phone] Allergies No known active allergies Immunizations Immunization [...] 119 06/11/2022 8:02 AM EST Temperature 36.4 C (97.6 F) 06/11/2022 8:02 AM EST Respiratory Rate 18 06/11/2022 8:02 AM EST Oxygen Saturation 99% 06/11/2022 8:02 AM EST Inhaled Oxygen Concentration - - Weight 86.2 kg (190 lb) 06/11/2022 8:02 AM EST Height - - Body Mass Index - - Plan of Treatment Not on file Insurance [facility] HMO/POS Care Teams Classer Relationship Specialty Start Date End Date Chuck Dominguez [address] [place] [address] [place] [address] PCP - General Internal Medicine 06/11/22
--- OUTSIDE RECORDS SUMMARY | 2024-11-17 08:48 | XMS_ITS | Clinical Summary ---
Author Organization [facility] ity Address [address] [place] [address] Care Team Providers Care Dx Board Operator Name Role Phone Unavailable Primary Care [...] 2002 COVID-19 Vaccine (2023-2 5 season) 2024 Cholesterol Screening (Lipid Panel) 03/04/2024 Depression Screening 03/04/2024 HIV Screening 03/04/2024 Hepatitis C Screening 03/04/2024 Social Influencers of Health Screening 03/04/2024 Influenza Vaccine (#1) 2025 HIB Vaccines Aged Out No longer eligi [...] age to complete this topic Meningococcal B Vaccine Aged Out No l onger eligible based on patient's age to complete this topic Pneumococcal Vaccine: Pediat rics (0 to 5 Years) and At-Risk Patients (6 to 49 Years) Aged Out No longer eligible b ased on patient's age to complete this topic RSV Immunization Patients Un may 20 months Aged Out No longer eligible b ased on patient's age to complete this topic Varicella Vaccines Aged Out No longer eligible based on patient's age to complete this topic
== END 2024-11-17 08:43 | disposition home or self-care (01) ==
LOC: HO.MRI 08:42
PROVIDERS: Visit Provider Orthopaedic Surgery
DX: M54.50 Low back pain, unspecified (principal); M79.604 Pain in right leg; M79.605 Pain in left leg
CPT/HCPCS: 72148

== ENCOUNTER → 2024-11-17 08:49 | Outpatient (BNV) | payer OTHER, SELFPAY | PROVIDERS: Visit Provider Radiology Diagnostic Radiology | DX: M51.27 Other intervertebral disc displacement, lumbosacral region (principal) | CPT/HCPCS: 72148 ==

== ENCOUNTER 2024-11-26 09:11 | Outpatient (AMB) | payer BC, SELFPAY ==
[2024-11-26 09:13] VITALS: BP 134/90; PULSE 108; TEMP 36.2; O2SAT 97; BMI 28.4
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
--- OUTSIDE RECORDS SUMMARY | 2024-11-26 09:32 | XMS_ITS | Referral Summary ---
Author Organization [facility] Address [address] [place] [address] Care Team Providers Care Blasting Entryman Name Role Phone Chuck Dominguez Primary Care Provider [phone] Allergies No known active allergies Immunizations Immunization [...] Plan of Treatment Not on file Insurance [facility] HMO/POS Care Teams Blasting Entryman Relationship Specialty Start Date End Date Chuck Dominguez [address] [place] [address] [place] [address] PCP - General Internal Medicine 06/11/22
--- OUTSIDE RECORDS SUMMARY | 2024-11-26 09:32 | XMS_ITS | Clinical Summary ---
Author Organization [facility] ity Address [address] [place] [address] Care Team Providers Care Generation Technician Name Role Phone Unavailable Primary Care Provider [...] season) 2024 Cholesterol Screening (Lipid Panel) 03/04/2024 HIV Screening 03/04/2024 Hepatitis C Screening 03/04/2024 Social Influencers of Health Screening 03/04/2024 Depression Screening 05/09/2024 Influenza Vaccine (#1) 2025 HIB Vaccines Aged [...]
== END 2024-11-26 10:16 | disposition home or self-care (01) ==
LOC: HO.HMCH 09:12
PROVIDERS: PCP Internal Medicine
DX: Z00.00 Encounter for general adult medical examination without abnormal findings (principal); E78.2 Mixed hyperlipidemia; R73.01 Impaired fasting glucose; E66.3 Overweight; K21.9 Gastro-esophageal reflux disease without esophagitis; M54.42 Lumbago with sciatica, left side; M54.2 Cervicalgia; H60.91 Unspecified otitis externa, right ear

== ENCOUNTER 2024-12-05 07:57 | Outpatient (AMB) | payer OTHER, SELFPAY ==
--- NOTE | 2024-12-05 07:59 | A.OFFVIS_ITS ---
Intake Visit Reasons: OV-Lumbar Spine MRI review Intake Note: Jeromy is a 39 year old male who presents with progressively worsening low back pain which radiates down both of his legs. The patient initially had right shoulder pain after suffering a work related injury on 09/18/2024. He states that his right shoulder pain has resolved completely. He describes his back pain as sharp and severe in nature. His pain radiates down both of his legs. He also reports intermittent weakness in both of his legs. The patient denies any prior back surgery. He denies any pain in his back prior to his work injury on 09/18/2024. Allergies No Known Allergies Allergy (Verified 12/05/24 07:59) Medication List - Last Reconciled 12/05/24 by Issac Morales MD cyclobenzaprine 10 mg PO TID PRN lidocaine 5% 1 patch topical DAILY naproxen 500 mg PO BID ofloxacin 0.3% 10 drps otic (ears) BID 14 days pantoprazole 40 mg PO DAILY [facility] Medical History Perianal pain Anal lesion Overweight (BMI 25.0-29.9) GERD without esophagitis Low back pain Cervical muscle strain Mixed hyperlipidemia Right hand weakness Right hand paresthesia Hypopharyngeal lesion Surgical History History of incision and drainage (~11/25/22) History of hemorrhoidectomy History of facial surgery Family History Father No problems noted. Mother Hypertension Social History Housing: Apartment Alcohol intake: current Alcohol intake frequency: a few times a week Patient Tobacco Use Status: Never used Tobacco e-Cigarette/Vaping Use: Never Used Second Hand Smoke Exposure: Yes Substance Use Type: Marijuana service: No Current occupational status: employed Current occupation: construction Cognitive needs: No Hearing needs: No Vision needs: No Physical Exam Back/Spine/Pelvis Other: Low back examination shows pain with range of motion, bilateral paraspinal muscle tenderness, positive straight leg raise test bilaterally at 70 degrees Results Reviewed Results Reviewed: MRI of the patient's lumbar spine shows left subarticular and foraminal broad- based herniated disc at L5-S1 abutting the left S1 and likely encroaching the left L5 nerve roots Assessment & Plan Assessment & Plan (1) Low back pain radiating to both legs: Code(s): M54.50 - Low back pain, unspecified; M79.604 - Pain in right leg; M79.605 - Pain in left leg Category: Medical Plan Mr. Forrest presents with low back pain which radiates down both of his legs most likely due to a herniated disc. Thus, I will refer the patient to our pain management clinic here at [facility]. He will contact me prior to that appointment should his symptoms worsen in any way. I do recommend that the patient not returned to work until he has been evaluated by the back specialist. I spent 21 minutes in reviewing the patient's records and imaging studies, seeing the patient and documenting in the medical record. Orders: Referrals Pain Management Referral M54.50 - Low back pain, unspecified, M79.604 - Pain in right leg, M79.605 - Pain in left leg Coding Level of Care Code Est Pt Level 3 (23216) Complex EM visit Add On G2211 Diagnoses Low back pain radiating to both legs M54.50; M79.604; M79.605
--- OUTSIDE RECORDS SUMMARY | 2024-12-05 07:59 | XMS_ITS | Referral Summary ---
Author Organization [facility] Address [address] [place] [address] Care Team Providers Care Bedspring Assembler Name Role Phone Chuck Dominguez Primary Care Provider [phone] Allergies No known active allergies Immunizations Immunization [...] Plan of Treatment Not on file Insurance [facility] HMO/POS Care Teams Bedspring Assembler Relationship Specialty Start Date End Date Chuck Dominguez [address] [place] [address] [place] [address] PCP - General Internal Medicine 06/11/22
--- OUTSIDE RECORDS SUMMARY | 2024-12-05 07:59 | XMS_ITS | Clinical Summary ---
Author Organization [facility] ity Address [address] [place] [address] Care Team Providers Care Cable Wirer Name Role Phone Unavailable Primary Care Provider [...]
== END 2024-12-05 08:17 | disposition home or self-care (01) ==
LOC: HO.HOS 07:58
PROVIDERS: PCP Internal Medicine; Visit Provider Orthopaedic Surgery
DX: M54.50 Low back pain, unspecified (principal); M79.604 Pain in right leg; M79.605 Pain in left leg
CPT/HCPCS: 99213; G2211

== ENCOUNTER → 2024-12-05 07:57 | Outpatient (BNVA) | payer OTHER, SELFPAY | PROVIDERS: PCP Internal Medicine; Visit Provider Orthopaedic Surgery | DX: M25.511 Pain in right shoulder (principal); M54.50 Low back pain, unspecified; M79.604 Pain in right leg; M79.605 Pain in left leg | CPT/HCPCS: 99212 ==

== ENCOUNTER 2025-01-24 09:58 | Emergency (ER) | payer OTHER, SELFPAY ==
[2025-01-24 09:59] VITALS: BP 141/86; PULSE 100; RESP 18; TEMP 36.1; O2SAT 97; BMI 29.4
--- NOTE | 2025-01-24 10:02 | ED_ITS ---
HPI - Back Pain/Injury General Chief Complaint: Back Pain/Injury Stated Complaint: back pain work related Time Seen by Provider: 01/24/25 10:18 Source: patient and RN notes reviewed Mode of arrival: ambulatory Limitations: no limitations History of Present Illness ED Provider: Radha Joseph PA-C HPI Narrative: This is a [id number]-[id number]-male who presents to the ER with a complaints of chronic back pain. Patient reports that approximately 4 months ago he sustained a work related injury. He states that he has had x-rays, and an MRI, and he is awaiting to see pain management for his back pain. He states that he has had no new injury or trauma. He states that he has been taking ibuprofen, Tylenol without any pain. He states that over the last several days his pain has increased. He states that the pain starts in his right low back and radiates down to his right leg. He denies any fevers. No chest pain or shortness for breath. He denies any abdominal pain, or urinary symptoms. No saddle anesthesia or urinary or bowel retention or incontinence. Denies any other complaints or concerns at this time. MD elicited complaint: back pain Pertinent past history: prior back pain Similar Symptoms Previously: Yes Quality: aching Location: lumbar spine Radiation: none Exacerbating factors: none Relieving factors: none Associated symptoms: numbness Treatments prior to arrival: NSAIDS Work related injury: Yes Related Data Home Medications ?Medication ?Instructions ?Recorded ?Confirmed lidocaine 5 % topical patch 1 patch topical DAILY 10/0712/05/24 naproxen 500 mg tablet 500 mg PO BID 10/17/2412/05 Previous Rx's ?Medication ?Instructions ?Recorded pantoprazole 40 mg tablet,delayed 40 mg PO DAILY #30 t abs 05/17/23 release ofloxacin 0.3 % ear drops 10 drp otic (ears) BID 14 da ys #10 11/27/24 mL cyclobenzaprine 10 mg tablet 10 mg PO TID PRN muscle s pasm #30 01/17/25 tabs acetaminophen 500 mg tablet 1,000 mg (2 x 500 mg) PO Q 8H PRN 01/24/25 (Tylenol Extra Strength) pain #30 tabs ibuprofen 600 mg tablet 600 mg PO Q6H PRN pain #30 t abs 01/24/25 lidocaine 5 % topical patch 1 patch topical DAILY #30 ea 01/24/25 methocarbamol 750 mg tablet 750 mg PO TID #9 tabs 01/07 12/31 prednisone 20 mg tablet 40 mg (2 x 20 mg) PO DAILY 5 days 01/24/25 #10 tabs Allergies Allergy/AdvReac Type Severity Reaction Status Date / Time No Known Allergies Allergy Verified 01/24/25 10:01 Review of Systems Review of Systems: Constitutional : No Fever, No Chills ENT/Mouth : No sore throat, No Rhinorrhea Eyes: No Eye Pain, No Swelling, No Redness Cardiovascular : No Chest Pain, No SOB Respiratory : No Cough, No Sputum Gastrointestinal : No Nausea, No Vomiting, No Diarrhea, No abdominal Pain Genitourinary : No Dysuria, No Hematuria Musculoskeletal : No joint pain, No Myalgias, No Joint Swelling, +back pain Skin : No Skin Lesions Neuro : No Weakness, No Numbness, No Headache All other systems reviewed and are negative Yes all other systems are reviewed and are negative Constitutional: Constitutional: Reports as per [facility] Past Medical History Medical History (Reviewed 11/26/24 @ 09:16 by Vangie Villavicencio [facility]) Perianal pain Anal lesion Overweight (BMI 25.0-29.9) GERD without esophagitis Low back pain Cervical muscle strain Mixed hyperlipidemia Right hand weakness Right hand paresthesia Hypopharyngeal lesion Surgical History History of incision and drainage (~11/25/22) History of hemorrhoidectomy History of facial surgery Family History Family History Father No problems noted. Mother Hypertension Social History Social History Housing: Apartment Alcohol intake: current Alcohol intake frequency: a few times a week Patient Tobacco Use Status: Never used Tobacco e-Cigarette/Vaping Use: Never Used Second Hand Smoke Exposure: Yes Substance Use Type: Marijuana Advance Directives: No Advance Directives Information Provided: Yes service: No Current occupational status: employed Current occupation: construction Cognitive needs: No Hearing needs: No Vision needs: No Physical Exam Vital Signs: Vital Signs: Last Vital Signs Temp 97 F 01/24/25 10:25 Pulse 100 01/24/25 10:25 Resp 18 01/24/25 10:25 BP 141/86 H 01/24/25 10:25 Pulse Ox 97 01/24/25 10:25 O2 Del Method Room Air 01/24/25 10:25 BMI result Body Mass Index 29.4 Const: General: cooperative, comfortable and no acute distress Orientation/consciousness: patient oriented x3 Limitations: no limitations HEENT: Head: Yes normal to inspection, Yes normocephalic and Yes atraumatic Ears: hearing grossly normal bilaterally General nose exam: Normal external nose present Face and sinus: Yes normal facial exam Mouth: Normal oral and palatal mucosa present, oropharynx normal and moist mucous membranes Throat: Yes posterior oropharynx normal Eyes: General: appearance normal, both eyes and all related structures Eyelids: Yes eyelids normal Conjunctivae: conjunctivae normal Sclerae: sclerae normal Pupils: Equal, round and reactive pupils present EOM: EOMs intact bilaterally Neck: Neck: Yes normal visual inspection, Yes full ROM and Yes no lymphadenopathy Lymphatic: no lymphadenopathy noted Chest: Chest palpation & inspection: normal inspection of the chest Resp: Effort & Inspection: normal respiratory effort and able to speak in complete sentences Auscultation: clear to auscultation bilaterally, no crackles, no rales, no rhonchi and no wheezes Cardio: Rate: regular rate Rhythm: regular rhythm Heart sounds: S1 normal heart sound present and S2 normal heart sound present GI: Inspection: Yes normal to inspection Back/Spine/Pelvis: Other: Tenderness palpation along the lumbar spine into the right lumbar musculature extending into the right buttock. Patient ambulatory with steady gait. Strength 5/5 in lower extremities. Distal sensation circulation intact. Skin: General skin exam: no rashes or lesions noted Trauma: no lacerations or abrasions Wounds: no wounds Neuro: General: patient oriented x3 and moves all extremities Cranial nerves: Yes Equal, round and reactive pupils present Extrem: General: Yes normal to inspection Right upper extremity: normal to inspection Left upper extremity: normal to inspection Right lower extremity: normal to inspection Left lower extremity: normal to inspection Medications Administered Discontinued Medications Generic Name Dose Route Start Last Admin Trade Name Freq PRN Reason Stop Dose Admin Ketorolac Tromethamine 30 mg 01/24/25 10:08 01/24/25 10:15 Ketorolac Tromethamine 30 Mg/Ml Vial IM 01/24/25 10:09 30 mg ONCE ONE Administration Medical Decision Making Medical Decision Making [facility] Narrative: This is a 39-year-old male, with a past medical history of herniated discs and lumbar radiculopathy, who presents emergency department with concerns of acute and chronic back pain. On arrival, patient mildly hypertensive at 141/86, no chest pain or shortness of breath. No blurred vision or headache. This patient presents with back pain most consistent with lumbar radiculopathy. Differential diagnoses includes lumbago versus musculoskeletal spasm / strain versus sciatica. No back pain red flags on history or physical. Presentation not consistent with malignancy (lack of history of malignancy, lack of B symptoms), fracture (no trauma, no bony tenderness to palpation), cauda equina syndrome (no bowel or urinary incontinence/retention, no saddle anesthesia, no distal weakness), pyelonephritis (afebrile, no CVAT, no urinary symptoms). Patient an MRI on November 17, 2024 which revealed left subarticular and foraminal broad based herniated disc at L5-S1, abutting the left S1 unlikely encroaching the left L5 nerve root. No indication for reimaging at this time. Patient medicated with Toradol, discharged on prednisone, ibuprofen, Tylenol, lidocaine patches and muscle relaxants. Given strict return precautions. He understands and agrees with plan. Patient stable for discharge. Differential Diagnosis Differential Diagnoses: The differential diagnosis associated with the presentation includes See above Discharge Plan Discharge Clinical Impression: Lumbar radiculopathy, right Patient Disposition: Home, Self-Care Instructions: Acute Low Back Pain (ED), Lumbar Radiculopathy (ED), Lower Back Exercises (ED) Additional Instructions: You were seen in the ER due to back pain. We gave you a medication called toradol, this will help with inflammation and pain. Gentle stretching, heat or ice, and lidocaine patches as prescribed. Please follow-up with the airbrush painter and with a back specialist. Prednisone is a steroid, take this as prescribed. Ibuprofen can help with your pain, take 600 mg every 6 hours, take with food. Please do not take ibuprofen until at least 8:00 p.m. tonight. Tylenol 1000 mg every 8 hours can also help. Methocarbamol this is a muscle relaxants, please be advised that this can cause drowsiness, do not drink alcohol or drive while taking this medication. If any new or worsening symptoms occur including but not limited to increased pain, severe chest pain, shortness of breath, please seek emergent care. Prescriptions: New ibuprofen 600 mg tablet 600 mg PO Q6H PRN (Reason: pain) Qty: 30 0RF acetaminophen [Tylenol Extra Strength] 500 mg tablet 1,000 mg PO Q8H PRN (Reason: pain) Qty: 30 0RF methocarbamol 750 mg tablet 750 mg PO TID Qty: 9 0RF lidocaine 5 % adhesive patch,medicated 1 patch topical DAILY Qty: 30 0RF Rx Instructions: leave on most painful area for up to 12 hrs prednisone 20 mg tablet 40 mg PO DAILY 5 Days Qty: 10 0RF No Action cyclobenzaprine 10 mg tablet 10 mg PO TID PRN (Reason: muscle spasm) Qty: 30 2RF pantoprazole 40 mg tablet,delayed release (DR/EC) 40 mg PO DAILY Qty: 30 1RF ofloxacin 0.3 % drops 10 drp otic (ears) BID 14 Days Qty: 10 0RF lidocaine 5 % adhesive patch,medicated 1 patch topical DAILY naproxen 500 mg tablet 500 mg PO BID Interventions: ED Discharge Assessment Last Done: 01/24/25 10:25 Discharge Date/Time: 01/24/25 10:26 Print Language: [place]
[2025-01-24 10:25] VITALS: BP 141/86; PULSE 100; RESP 18; TEMP 36.1; O2SAT 97
--- OUTSIDE RECORDS SUMMARY | 2025-01-24 12:19 | XMS_ITS | Clinical Summary ---
Author Organization [facility] ity Address [address] [place] [address] Care Team Providers Care Builder'S Labourer Name Role Phone Unavailable Primary Care Provider [...] of 3 - 19+ 3-dose series) 2002 Cholesterol Screening (Lipid Panel) 03/04/2024 HIV Screening 03/04/2024 Hepatitis C Screening 03/04/2024 Social Influencers of Health Screening 03/04/2024 Depression Screening 05/09/2024 COVID-19 Vaccine (2023-2 5 season) 2025 Influenza Vaccine (#1) 2025 HIB Vaccines Aged [...]
--- OUTSIDE RECORDS SUMMARY | 2025-01-24 12:19 | XMS_ITS | Clinical Summary ---
Author Organization [facility] Address [address] [place] [address] Care Team Providers Care Case Manager Name Role Phone Chuck Dominguez Primary Care Provider [phone] Allergies No known active allergies Immunizations Immunization [...] Td Vaccines (1 - Tdap) 06/12/2022 06/11/2022 Alcohol/Substance Use Screening 05/09/2024 COVID-19 Vaccine (1 - 2023-2 5 season) 2025 Influenza Vaccine (#1) 2025 RSV Vaccine (60+ years old a nd patients) (1 - 1-dose 75+ series) 2058 Pneumococcal Vaccine: Pediat marielle (0-5 Years) and At-Risk Patients (6-50 Years) Aged Out No longer eligible b ased on patient's age to complete this topic Insurance [facility] HMO/POS Care Teams Case Manager Relationship Specialty Start Date End Date Chuck Dominguez [address] [place] [address] [place] [address] PCP - General Internal Medicine 06/11/22
== END 2025-01-24 10:26 | disposition home or self-care (01) ==
PROVIDERS: Emergency Provider Emergency Medicine
DX: M54.16 Radiculopathy, lumbar region (principal); I10 Essential (primary) hypertension; Z87.828 Personal history of other (healed) physical injury and trauma; Z87.39 Personal history of other diseases of the musculoskeletal system and connective tissue; Z79.899 Other long term (current) drug therapy
CPT/HCPCS: 96372; 99283; 99284; J1885

== ENCOUNTER 2025-04-19 10:05 | Outpatient (AMB) | payer OTHER, SELFPAY ==
--- NOTE | 2025-04-19 10:27 | A.OFFVIS_ITS ---
Vital Signs 04/19/25 10:29 Height 5 ft 10 in BP 147/73 H Blood Pressure Location Lt brachial Position Sitting Respiration 16 Pulse 101 H Pulse Source Pulse Oximeter Pulse Oximetry (%) 97 Oxygen Delivery Method Room Air Intake Visit Reasons: Low back pain, unspecified Merchandise Presentation Manager Required: No Allergies No Known Allergies Allergy (Verified 04/19/25 10:30) Medication List - Last Reconciled 04/19/25 by Nolvia Soliz LPN acetaminophen (Tylenol Extra Strength) 1,000 mg (2 x 500 mg) PO Q8H PRN cyclobenzaprine 10 mg PO TID PRN ibuprofen 600 mg PO Q6H PRN omeprazole 20 mg PO DAILY HPI HPI Low back pain, unspecified: Details: History of Present Illness The patient is a 39-year-old male presenting for management of back pain. He reports the acute onset of pain after being on his knees at work for an extended period; when he stood up, he felt the pain begin. He denies any specific lifting, pushing, or pulling at the time of onset. The patient describes the pain as a constant, dull ache. He experiences associated numbness and pins and needles in his left leg. He also notes sharp pain with jerking movements, such as when playing with his granddaughter, and with bending forward or backward. Due to the injury, the patient has been out of work since September. He previously attempted physical therapy but found it too difficult on the first day. His pain also interferes with his sleep and ability to drive. Past medical history is significant for a rectal abscess, for which the current provider performed anesthesia. Pain Description - Quality: The patient describes a constant, dull pain. - Location and Radiation: The pain is in his back and is associated with numbness and pins and needles radiating to the left leg. - Exacerbating Factors: Pain is worsened by jerking movements, bending forward and backward, and certain movements like turning his head while driving. - Associated Symptoms: He experiences sharp pain with certain movements. - Interference with Activities: The pain negatively impacts his ability to work, sleep, drive, and interact with his granddaughter. Physical Exam - Musculoskeletal: Positive straight leg raise test eliciting back pain. - Pain is noted with lumbar range of motion. Results - MRI Lumbar Spine: Findings show a degenerating disc at L5-S1 which is compressed, wavy, and pushing into the bone, with evidence of a fissure. - The disc is noted to be contacting the nerve roots, particularly on the left side, but not severely compressing them. Pain Management - Analgesia: The patient reports using Tylenol. - Pain is characterized as a constant dull ache. - Activities of Daily Living: Pain interferes with sleep, work, driving, and playing with his granddaughter. - Affect: The patient expresses that the pain is constant but not so severe that he is bedridden. - Adverse Effects: No adverse effects from medications were discussed. - Aberrant Drug Related Behaviors: No aberrant drug-related behaviors were noted or discussed. [facility] Medical History Perianal pain Anal lesion Overweight (BMI 25.0-29.9) GERD without esophagitis Low back pain Cervical muscle strain Mixed hyperlipidemia Right hand weakness Right hand paresthesia Hypopharyngeal lesion Surgical History History of incision and drainage (~11/25/22) History of hemorrhoidectomy History of facial surgery Family History Father No problems noted. Mother Hypertension Social History Housing: Apartment Alcohol intake: current Alcohol intake frequency: a few times a week Patient Tobacco Use Status: Never used Tobacco e-Cigarette/Vaping Use: Never Used Second Hand Smoke Exposure: Yes Substance Use Type: Marijuana service: No Current occupational status: employed Current occupation: construction Cognitive needs: No Hearing needs: No Vision needs: No Physical Exam Vital Signs: Last Vital Signs Pulse 101 H 04/19/25 10:29 Resp 16 04/19/25 10:29 BP 147/73 H 04/19/25 10:29 Pulse Ox 97 04/19/25 10:29 Oxygen Delivery Method Room Air 04/19/25 10:29 Assessment & Plan Assessment & Plan (1) Lumbar radiculopathy: Code(s): M54.16 - Radiculopathy, lumbar region Category: Medical Plan Plan Patient was informed and verbally consented to the use of an ambient scribe for clinic note documentation during this visit. 1. Lumbar Degenerative Disc Disease With Radiculopathy - The patient's back pain is multifactorial, stemming from chronic degenerative changes at the L5-S1 disc and associated radicular symptoms from nerve root contact. - An L5/S1 left p/s interlaminar epidural steroid injection will be administered to address the radicular symptoms of numbness and tingling. - The patient is advised to start a long-term core strengthening program, including strengthening the back muscles and glutes, to provide better support for the spine. - Swimming is recommended as a beneficial, low-impact exercise to unload the spinal disc. - The patient has been counseled on proper lifting mechanics, emphasizing keeping the back straight and using the knees to lift. - He will be placed out of work for two months to allow for recovery and to focus on his exercise regimen. - Follow-up will be in two months to re-evaluate his symptoms and progress. Discussion Notes I discussed with the patient that his MRI shows degenerative disc disease at L5- S1, which is a chronic, long-term problem. I explained that the disc is contacting the nerves, causing his left-sided numbness and tingling. To manage these radicular symptoms, I recommended an epidural steroid injection, which will be scheduled at the hospital after we obtain authorization. I emphasized that the sharp, mechanical pain is from the damaged disc itself and that long-term management relies on strengthening the core muscles to offload the spine. I recommended swimming and specific core exercises and advised him on proper lifting techniques, such as keeping his back straight and using his legs. We agreed to put him out of work for two months to allow him to recover and start his exercise program. We will re-evaluate his condition and work status in two months. Patient Instructions - Our office will call you to schedule an epidural steroid injection, which will take place in the hospital. - This injection is to help reduce the inflammation around the nerve and improve the numbness, tingling, and pain going down your leg. - You need to work on strengthening the muscles in your abdomen, back, and buttocks (your core). - Swimming is an excellent exercise for your back because it takes the pressure off your spine. - When lifting anything, always keep your back straight and bend your knees. - Do not bend at the waist to lift. - We are providing a note to keep you out of work for two months while you recover. - Please schedule a follow-up appointment to be seen in our office in two months. Coding Level of Care Code New Pt Level 4 (82089) Diagnoses Lumbar radiculopathy M54.16
[2025-04-19 10:29] VITALS: BP 147/73; PULSE 101; RESP 16; O2SAT 97
== END 2025-04-19 11:10 | disposition home or self-care (01) ==
LOC: HO.PMC 10:06
PROVIDERS: Visit Provider Internal Medicine
DX: M54.16 Radiculopathy, lumbar region (principal)
CPT/HCPCS: 99204

== ENCOUNTER → 2025-04-19 10:05 | Outpatient (BNVA) | payer OTHER, SELFPAY | PROVIDERS: Visit Provider Internal Medicine | DX: M54.16 Radiculopathy, lumbar region (principal); R20.2 Paresthesia of skin | CPT/HCPCS: 99202 ==